=== PATIENT | male | born 1950 | race Caucasian/White ===

== ENCOUNTER 2017-10-11 15:42 | Observation (INO) | payer OTHER ==
[2017-10-11] MEDS ORDERED: DIGOXIN 0.5 MG/2 ML AMPUL ONE (16:03)
--- NOTE | 2017-10-11 16:03 | PDOC ---
Attending Attestation - Resident Resident Name: Gina Echevarria - ED Attending Attestation I have performed the following: I have examined & evaluated the patient, The case was reviewed & discussed with the resident, I agree w/resident's findings & plan, Exceptions are as noted - HPI HPI: 10/11/17 16:06 Mr Husain is a 67-year-old male with a history of atrial fibrillation on Eliquis, history of hypertension. Patient states he went to his primary care physician's office, with the intention of going to the gym today. While at his primary care physician's office, his vitals revealed a tachycardia. EMS was called. Patient noted to have supraventricular tachycardia. Given Cardizem 6mg After cardizem 12, this revealed a flutter Patient was brought to emergency department for further stabilization. He denies chest pain, short of breath. He asked she has no sensation of his heart rate being elevated. No nausea, vomiting. No prior history of ACS. Patient is closely followed by his linotypist, most recent echo was several months ago per patient normal. No recent travel. No history of thyroid disorder. - Physicial Exam PE: 10/11/17 16:10 Patient's examination is significant for: Regular rhythm Tachycardia No murmur Lungs are clear No abdominal tenderness to palpation. Patient is awake, alert, oriented - Medical Decision Making 10/11/17 16:11 Will do labs Will call linotypist Pt linotypist requests that pt be given Digoxin 0.5 HR decreased from 150s to 110s Pt given Metoprolol 5mg IV and Metoprolol 50mg po (he missed his morning meds) HR controlled Laboratory Tests 10/11/17 10/11/17 16:04 16:04 WBC 7.8 Hgb 15.6 Hct 46.8 Plt Count 229 D BUN 22 H Creatinine 1.2 Creatine Kinase 672 H Creatine Kinase Index 1.0 CK-MB (CK-2) 6.83 H Troponin I 0.04 D B-Natriuretic Peptide 976.16 H Pt initially hesitant, but ultimately convinced to stay in the hospital EKG: supraventricular tachycardia, rate of 155 bpm, [place] nml, intervals nml, no st elevations or depressions Clinical Impression: Aflutter, initial presentation 10/12/17 21:42 10/12/17 21:43
[2017-10-11] MEDS ORDERED: SODIUM CHLORIDE 1,000 ML IV STA (16:04)
[2017-10-11] MEDS ORDERED: ADENOSINE 6 MG/2 ML VIAL IVPUSH ONE (16:04)
[2017-10-11] MEDS ORDERED: DIGOXIN 0.5 MG/2 ML AMPUL IVPUSH ONE (16:05)
--- NOTE | 2017-10-11 16:11 | PDOC ---
History of Present Illness - General Stated Complaint: DIFFICULTY BREATHING Time Seen by Provider: 10/11/17 16:06 - History of Present Illness Initial Comments: 67 year old male with a PMH of AFib (on Eliquis) and HTN BIBEMS from his PMD's office after a routine ECG shows SVT. Patient states he was in his usual state of health and was going to his PMD's office for a regular visit. Denies any chest pain, shortness of breath, lightheadedness, nause/vomiting and state he was planning on going to gym after his doctor's appointment. Notes no personal or family h/o ACS. As per EMS patient was given Cardizem (6 mg) and Cardizem (12 mg) with subsequent conversion to AFib. At presentation patient tachycardic to 150's. Past History - Past Medical History Allergies/Adverse Reactions: Allergies Allergy/AdvReac Type Severity Reaction Status Date / Time No Known Allergies Allergy Verified 04/02/14 22:06 Home Medications: Ambulatory Orders Esomeprazole Mag Trihydrate [Nexium] 40 mg PO DAILY 12/07/12 Metoprolol Tartrate [Lopressor -] 25 mg PO DAILY 12/07/12 Aspirin [ASA -] 81 mg PO DAILY #0 tab.chew 12/11/12 traZODone HCL [Desyrel -] 40 mg PO HS 04/02/14 Testosterone [Androgel] 1.25 gm TD DAILY 06/15/14 Thyroid 60 mg PO DAILY 06/15/14 Guar Gum [Benefiber] 1 each PO BID #0 packet 06/16/14 Avoid Motrin/Advil/Aleve 06/25/14 Phenylephrine HCl [Nasal [place]] 30 ml NS PRN PRN 06/25/14 Apixaban [Eliquis -] 5 mg PO Q12H #0 tablet 10/13/17 Apixaban [Eliquis] 5 mg PO BID #60 tablet 10/13/17 Atorvastatin Ca [Lipitor] 80 mg PO HS #30 tab 10/13/17 Atorvastatin Ca [Lipitor] 80 mg PO HS #60 tablet 10/13/17 Metoprolol Succinate 50 mg PO BID #60 tab.er.24h 10/13/17 Metoprolol Succinate [Toprol XL -] 50 mg PO BID #120 tab.sr.24h 10/13/17 Anemia: No Asthma: No Cancer: No Cardiac Disorders: Yes (ENLARGED HEART, SEVERE AORTIC SENOSIS) CVA: No COPD: No CHF: No Dementia: No GI Disorders: Yes (COLON POLYPS) Disorders: No HTN: Yes Hypercholesterolemia: No Liver Disease: No Seizures: No Thyroid Disease: Yes (HYPO) - Surgical History Abdominal Surgery: No Appendectomy: No Cardiac Surgery: No Cholecystectomy: No Lung Surgery: No Neurologic Surgery: No Orthopedic Surgery: Yes (LT ANKLE REPAIR, ELENA. CARPAL TUNNEL SX) - Suicide/Smoking/Psychosocial Hx Smoking Status: No Smoking History: Former smoker Have you smoked in the past 12 months: No Number of Cigarettes Smoked Daily: 0 If you are a former smoker, when did you quit?: 40 YRS AGO Hx Alcohol Use: No Drug/Substance Use Hx: No Substance Use Type: None Hx Substance Use Treatment: No Review of Systems - Review of Systems Constitutional: No: Chills, Fever Respiratory: No: Cough, Shortness of Breath, Stridor, Wheezing Cardiac (ROS): Yes: Palpitations. No: Chest Pain, Lightheadedness, Syncope ABD/GI: Yes: Difficulty Swallowing. No: Constipated, Diarrhea, Nausea, Vomiting , Abdominal cramping : No: Burning, Dysuria *Physical Exam - Physical Exam Comments: 10/14/17 04:16 Alert, verbal, tachycardic S1/S2, Tachycardic Lungs CLTA Abdomen soft, no TTP, (+) Bowel Sounds Extremities: no edema, 2+ DP ED Treatment Course - LABORATORY CBC & Chemistry Diagram: 10/13/17 05:50 10/13/17 05:50 Medical Decision Making - Medical Decision Making 10/14/17 04:19 67 year old male BIBEMS for tachycardia. In Atrial flutter, tachycardic to 150' s at presentation. ECG show SVT HR 155 with normal intervals, no deviations, no TWI/CRISTINO/STD Patient given Metoprolol (5 mg IV) and 50 mg PO with HR to 110's Case d/w patient's gluer, Dr. Rainey - requests Digoxin (0.5 mg) - ok w/ discharge. If patient stays, requests Dr. Kamara for cardiology. Patient continues to be intermittently tachycardic to 120's. Complains of anxiety and agitation. Patient later notes he has a licensed weapon and he is afraid it will be taken away from him and shows license for weapon. Patient's weapon given to security. Patient continues to express anxiety that he will in the hospital. S/p Ativan (2 mg). Patient and patient's sister @ bedside counseled extensively on importance of admission, amenable to admission. Case d/w ACCOUNTS RECEIVABLE ASSISTANT, admitted to inpatient telemetry. *DC/Admit/Observation/Transfer Diagnosis at time of Disposition: Tachycardia - Discharge Dispostion Condition at time of disposition: Fair Decision to Admit order: Yes - Prescriptions - Referrals - Patient Instructions - Post Discharge Activity
[2017-10-11 16:39] LABS: BASO % 0.4 % (0-2.0); EOS % 2.6 % (0-4.5); HEMATOCRIT 46.8 % (35.4-49); HEMOGLOBIN 15.6 GM/dL (11.7-16.9); LYMPH % 24.3 % (8-40); MCH 30.2 pg (25.7-33.7); MCHC 33.3 g/dl (32.0-35.9); MEAN CELL VOLUME 90.6 fl (80-96); MEAN PLT VOLUME 8.5 fl (7.5-11.1); MONO % 12.2 % (3.8-10.2); NEUT % 60.5 % (42.8-82.8); PLATELET COUNT 229 K/MM3 (134-434); RBC 5.17 M/mm3 (4.00-5.60); RDW 14.8 % (11.9-15.9); WHITE BLOOD COUNT 7.8 K/mm3 (4.0-10.0)
[2017-10-11 17:04] LABS: ANION GAP 9 (8-16); BLOOD UREA NITROGEN 22 mg/dL (7-18); CALCIUM 8.4 mg/dL (8.5-10.1); CHLORIDE 110 mmol/L (98-107); CO2 23 mmol/L (21-32); CREATININE 1.2 mg/dL (0.7-1.3); GLUCOSE,RANDOM 99 mg/dL (74-106); POTASSIUM 4.5 mmol/L (3.5-5.1); SGOT/AST 28 U/L (15-37); SGPT/ALT 67 U/L (12-78); SODIUM 142 mmol/L (136-145)
[2017-10-11 17:08] LABS: ALK PHOS 66 U/L (45-117); BILIRUBIN,TOTAL 0.4 mg/dL (0.2-1.0); N-TERMINAL BNP 976.16 pg/ml (5-125); TOT PROT 6.2 g/dl (6.4-8.2)
[2017-10-11] MEDS ORDERED: METOPROLOL TARTRATE 5 MG/5 ML VIAL IVPUSH ONE (17:22)
[2017-10-11] MEDS ORDERED: APIXABAN 5 MG TABLET PO ONE (17:23)
[2017-10-11] MEDS ORDERED: METOPROLOL TARTRATE 5 MG/5 ML VIAL ONE (17:23)
--- NOTE | 2017-10-11 20:40 | HP ---
CHIEF COMPLAINT: sent by PMD for rapid heart rate, no chest pain PCP: Dr. Eckert HISTORY OF PRESENT ILLNESS: Patient is an 67 year old male with a significant past medical history of atrial fibrillation (on Eliquis), hypertension and severe aortic stenosis. Patient went to his primary care physician's office, and was found to have a rapid heart rate during routine vitals. Physician office called EMS and patient was brought here. In the ED, patient was noted to have supraventricular tachycardia and was given Cardizem, metoprolol IV and adenosine. After med administration patient was noted to have atrial flutter. Patient denies any chest pain, shortness of breath , nausea or vomiting. No arm pain or jaw pain. Patient is under the care of his beater worker helper and had a recent echo. Patient states compliance with his home medications. ER was notable for (1) cardizem, metoprolol, adenosine (2) (3) PAST MEDICAL HISTORY: atrial fibrillation (on Eliquis), hypertension and severe aortic stenosis PAST SURGICAL HISTORY: Social History: Smoking: former smoker Alcohol: denies Drugs: denies Family History: Allergies No Known Allergies Allergy (Verified 04/02/14 22:06) HOME MEDICATIONS: Home Medications Medication Instructions Recorded Esomeprazole Mag Trihydrate 40 mg PO DAILY 12/07/12 [Nexium] Metoprolol Tartrate [Lopressor -] 25 mg PO DAILY 12/07/12 Aspirin [ASA -] 81 mg PO DAILY #0 tab.chew 12/11/12 traZODone HCL [Desyrel -] 40 mg PO HS 04/02/14 Testosterone [Androgel] 1.25 gm TD DAILY 06/15/14 Thyroid 60 mg PO DAILY 06/15/14 Guar Gum [Benefiber] 1 each PO BID #0 packet 06/16/14 Avoid Motrin/Advil/Aleve 06/25/14 Phenylephrine HCl [Nasal [place]] 30 ml NS PRN PRN 06/25/14 PHYSICAL EXAMINATION Vital Signs - 24 hr 10/11/17 10/11/17 10/11/17 15:43 16:30 16:55 Temperature 98.0 F Pulse Rate 155 H 155 H Pulse Rate [ 115 H Apical] Respiratory 16 16 Rate Blood Pressure 134/94 Blood Pressure 145/77 [Left Arm] O2 Sat by Pulse 100 100 Oximetry (%) 10/11/17 10/11/17 17:22 17:31 Temperature Pulse Rate Pulse Rate [ 77 Apical] Respiratory 16 Rate Blood Pressure 144/75 Blood Pressure 120/78 [Left Arm] O2 Sat by Pulse 100 Oximetry (%) GENERAL: Awake, alert, and fully oriented, in no acute distress. HEAD: Normal with no signs of trauma. EYES: Pupils equal, round and reactive to light, extraocular movements intact, sclera anicteric, conjunctiva clear. No lid lag. EARS, NOSE, THROAT: Ears normal, nares patent, oropharynx clear without exudates. Moist mucous membranes. NECK: Normal range of motion, supple without lymphadenopathy, JVD, or masses. LUNGS: Breath sounds equal, clear to auscultation bilaterally. No wheezes, and no crackles. No accessory muscle use. HEART: NSR 115 on phototypesetting equipment monitor ABDOMEN: Soft, nontender, not distended, normoactive bowel sounds, no guarding, no rebound, no masses. No hepatomegaly or splenomegaly. MUSCULOSKELETAL: Normal range of motion at all joints. No bony deformities or tenderness. No CVA tenderness. UPPER EXTREMITIES: No peripheral edema. LOWER EXTREMITIES: No peripheral edema. NEUROLOGICAL: Normal speech. Normal gait. PSYCHIATRIC: Appropriate mood and affect. SKIN: Warm, dry, normal turgor, no rashes or lesions noted, normal capillary refill. Laboratory Results - last 24 hr 10/11/17 10/11/17 16:04 16:04 WBC 7.8 RBC 5.17 Hgb 15.6 Hct 46.8 MCV 90.6 MCH 30.2 MCHC 33.3 RDW 14.8 Plt Count 229 D MPV 8.5 Absolute Neuts (auto) 4.7 Neutrophils % 60.5 Lymphocytes % 24.3 D Monocytes % 12.2 H Eosinophils % 2.6 D Basophils % 0.4 Nucleated RBC % 0 Sodium 142 Potassium 4.5 Chloride 110 H Carbon Dioxide 23 Anion Gap 9 BUN 22 H Creatinine 1.2 Creat Clearance w eGFR > 60 Random Glucose 99 Calcium 8.4 L Total Bilirubin 0.4 AST 28 D ALT 67 D Alkaline Phosphatase 66 Creatine Kinase 672 H Creatine Kinase Index 1.0 CK-MB (CK-2) 6.83 H Troponin I 0.04 D B-Natriuretic Peptide 976.16 H Total Protein 6.2 L Albumin 3.0 L ASSESSMENT/PLAN: Patient is an 67 year old male with a significant past medical history of atrial fibrillation (on Eliquis), hypertension and severe aortic stenosis. Patient went to his primary care physician's office, and was found to have a rapid heart rate during routine vitals. Physician office called EMS and patient was brought here. Card: Rule out ACS: trend troponins, monitor on tele. Repeat EKG. Follow labs and vitals. Lipid panel. TSH ordered. Cardiology consulted. Hypertension: BP controlled. Atrial fib: On Eliquis fen tolerating po monitor electrolytes low salt diet prophy: on eliquis full code Hospitalist Screening - Colonoscopy Questionnaire Colonoscopy Questionnaire: Colonoscopy Questionnaire
[2017-10-11] MEDS ORDERED: METOPROLOL TARTRATE 5 MG/5 ML VIAL IVPUSH PRN (20:41)
[2017-10-11] MEDS ORDERED: LORazepam 2 MG/ML SDV VIAL ONE (21:19)
[2017-10-12 01:15] VITALS: BMI 31.7
[2017-10-12 06:23] LABS: BASO % 0.5 % (0-2.0); EOS % 3.9 % (0-4.5); HEMATOCRIT 48.2 % (35.4-49); LYMPH % 26.7 % (8-40); MCH 30.1 pg (25.7-33.7); MCHC 33.1 g/dl (32.0-35.9); MEAN CELL VOLUME 90.9 fl (80-96); MEAN PLT VOLUME 8.3 fl (7.5-11.1); MONO % 10.8 % (3.8-10.2); NEUT % 58.1 % (42.8-82.8); PLATELET COUNT 199 K/MM3 (134-434); RDW 14.9 % (11.9-15.9); WHITE BLOOD COUNT 8.4 K/mm3 (4.0-10.0)
[2017-10-12 07:03] LABS: ALBUMIN 2.9 g/dl (3.4-5.0); ANION GAP 9 (8-16); BILIRUBIN,TOTAL 0.6 mg/dL (0.2-1.0); BLOOD UREA NITROGEN 17 mg/dL (7-18); CALCIUM 8.4 mg/dL (8.5-10.1); CHLORIDE 109 mmol/L (98-107); CO2 26 mmol/L (21-32); CREATININE 1.1 mg/dL (0.7-1.3); GLUCOSE,RANDOM 83 mg/dL (74-106); MAGNESIUM 1.8 mg/dL (1.8-2.4); POTASSIUM 4.8 mmol/L (3.5-5.1); SGOT/AST 25 U/L (15-37); SGPT/ALT 65 U/L (12-78); SODIUM 144 mmol/L (136-145); TOT PROT 6.2 g/dl (6.4-8.2)
[2017-10-12 07:12] LABS: ALK PHOS 65 U/L (45-117)
[2017-10-12] MEDS: metoPROLOL SUCCINATE 25 MG TAB.SR.24H (FP) PO SCH ×3 (08:11→21:18)
[2017-10-12] MEDS: APIXABAN 5 MG TABLET PO SCH ×2 (08:11→20:30)
--- NOTE | 2017-10-12 08:54 | EKG ---
Test Reason : Blood Pressure : / mmHG Vent. Rate : 155 BPM Atrial Rate : 076 BPM P-R Int : 000 ms QRS Dur : 096 ms QT Int : 304 ms P-R-T Axes : 000 008 231 degrees QTc Int : 488 ms SUPRAVENTRICULAR TACHYCARDIA , Possible Atrial Flutter NONSPECIFIC ST ABNORMALITY ABNORMAL ECG Confirmed by JENIFER ALVARADO MD ([id number]) on 10/12/2017 8:54:35 AM Referred By: Confirmed By:JENIFER ALVARADO MD
[2017-10-12 09:03] LABS: CHOLESTEROL 211 mg/dL (50-200); HDL CHOLESTEROL 24 mg/dL (40-60); TRIGLYCERIDES 108 mg/dL (35-160)
--- NOTE | 2017-10-12 10:21 | CON.CARD ---
Consult Consult Specialty:: Cardiology Referred by:: Hospitalist Medicine Reason for Consultation:: Rapid aflutter - History of Present Illness Chief Complaint: Tachycardia History of Present Illness: cc: Sent by PMD for rapid heart rate and fatigue, no chest pain PCP: Dr. Eckert Health Care Coach: Wilson Rainey MD CD HISTORY OF PRESENT ILLNESS: Patient is an 67 year old male with history of moderate aortic stenosis, HTN, paroxysmal atrial fibrillation, DVT/PE (on Eliquis), hypertension last saw Dr. Rainey 07/13/2017. Patient went to his primary care physician's office for fatigue, was found to have a rapid heart rate during routine vitals. EKG revealed SVT 155 and was given Cardizem, metoprolol IV and adenosine. After med administration patient was noted to have atrial flutter. Patient denies any chest pain, shortness of breath, near or true syncope, palpitations. Patient states compliance with his home medications including Eliquis, just ate breakfast. - History Source History Provided By: Patient Limitations to Obtaining History: No Limitations - Alcohol/Substance Use Hx Alcohol Use: No - Smoking History Smoking history: Former smoker Have you smoked in the past 12 months: No Aproximately how many cigarettes per day: 0 If you are a former smoker, when did you quit?: 40 YRS AGO Home Medications - Allergies Allergies/Adverse Reactions: Allergies Allergy/AdvReac Type Severity Reaction Status Date / Time No Known Allergies Allergy Verified 04/02/14 22:06 - Home Medications Home Medications: Ambulatory Orders Esomeprazole Mag Trihydrate [Nexium] 40 mg PO DAILY 12/07/12 Metoprolol Tartrate [Lopressor -] 25 mg PO DAILY 12/07/12 Aspirin [ASA -] 81 mg PO DAILY #0 tab.chew 12/11/12 traZODone HCL [Desyrel -] 40 mg PO HS 04/02/14 Testosterone [Androgel] 1.25 gm TD DAILY 06/15/14 Thyroid 60 mg PO DAILY 06/15/14 Guar Gum [Benefiber] 1 each PO BID #0 packet 06/16/14 Avoid Motrin/Advil/Aleve 06/25/14 Phenylephrine HCl [Nasal [place]] 30 ml NS PRN PRN 06/25/14 Review of Systems - Review of Systems Constitutional: reports: Malaise Vital Signs: Vital Signs Temperature 97.5 F L 10/12/17 02:00 Pulse Rate 75 10/12/17 06:00 Respiratory Rate 20 10/12/17 06:00 Blood Pressure 139/87 10/12/17 06:00 O2 Sat by Pulse Oximetry (%) 96 10/11/17 22:00 Constitutional: Yes: No Distress, Calm Neck: Yes: Supple Respiratory: Yes: Regular, CTA Bilaterally Gastrointestinal: Yes: Normal Bowel Sounds, Soft, Abdomen, Obese Cardiovascular: Yes: Tachycardia, Pulse Irregular JVD: No Carotid Bruit: No Heart Sounds: Yes: S1, S2 Murmur: Yes: Systolic Murmur, Grade 2 Edema: No - Other Data Labs, Other Data: CBC, BMP 10/12/17 05:30 10/12/17 05:30 Troponin, BNP 10/11/17 10/11/17 10/12/17 16:04 22:24 05:30 Troponin I 0.04 D 0.05 0.04 B-Natriuretic Peptide 976.16 H Troponin, BNP 10/11/17 10/11/17 10/12/17 16:04 22:24 05:30 Troponin I 0.04 D 0.05 0.04 B-Natriuretic Peptide 976.16 H SVT 155->Aflutter @ 97 Echo: Report Reviewed Ejection Fraction %: LVEF > or = 40 % Imaging - Results Chest X-ray: Report Reviewed (NAD) Problem List - Problems (1) Moderate aortic stenosis Code(s): I35.0 - NONRHEUMATIC AORTIC (VALVE) STENOSIS (2) Hyperlipidemia Code(s): E78.5 - HYPERLIPIDEMIA, UNSPECIFIED Qualifiers: Hyperlipidemia type: pure hypercholesterolemia Qualified Code(s): E78.00 - Pure hypercholesterolemia, unspecified; E78.0 - Pure hypercholesterolemia (3) Paroxysmal atrial flutter Code(s): I48.92 - UNSPECIFIED ATRIAL FLUTTER (4) Chronic anticoagulation Code(s): Z79.01 - DESK OPERATOR (CURRENT) USE OF ANTICOAGULANTS Assessment/Plan 03/22/2017 Echo: Normal LV and RV size and fxn, abnl LV compliance, normal biatrial sizes, mod NEELAM 1.0 cm^2, MG 18.7 mmHg, mild AI, tr MR, TR 1. Paroxysmal atrial flutter/fibrillation with improved rate-control 2. Moderate aortic stenosis 3. Hyperlipidemia not at goal P:1. Ruled out MA, f/u echocardiogram 2. Increase metoprolol 50 bid, Eliquis 5 bid, continue Lipitor with f/u lipid panel 3. Already at breakfast so can't cardiovert, will confirm rate-control with increased Toprol dose, discussed plan with Dr. Rainey of [facility] [place], he will see patient in office for f/u 4. Thank you for consultative opportunity
[2017-10-12] MEDS: metoPROLOL SUCCINATE 25 MG TAB.SR.24H (FP) PO ONE ×2 (11:38→11:50)
--- NOTE | 2017-10-12 13:13 | ECHO ---
Name: CUCCHIELLA, BINA Exam:Adult Echocardiogram Study Date: 10/12/2017 09:13 AM Reason For Study: svt Height: 69 in Weight: 200 lb BSA: 2.1 m2 MMode/2D Measurements & Calculations IVSd: 0.95 cm Ao root diam: 3.7 cm LVIDd: 5.2 cm LA dimension: 5.0 cm LVIDs: 3.6 cm ACS: 0.67 cm LVPWd: 1.5 cm IVSs: 1.3 cm LVPWs: 1.6 cm EDV(Teich): 131.4 ml ESV(Teich): 55.9 ml LVOT diam: 2.1 cm Doppler Measurements & Calculations MV E max rome: 72.3 cm/sec Ao V2 max: 278.0 cm/sec MV A max rome: 63.4 cm/sec Ao max P.4 mmHg MV E/A: 1.1 Ao V2 mean: 187.5 cm/sec Ao mean P.4 mmHg Ao V2 VTI: 43.6 cm NEELAM(I,D): 1.6 cm2 NEELAM(V,D): 1.4 cm2 LV V1 max P.6 mmHg SV(LVOT): 69.4 ml LV V1 mean P.6 mmHg LV V1 max: 115.7 cm/sec LV V1 mean: 85.9 cm/sec LV V1 VTI: 20.9 cm TR max rome: 259.0 cm/sec Med Peak E' [place]: 6.4 cm/sec TR max P.9 mmHg Med E/e': 11.4 Lat Peak E' [place]: 13.4 cm/sec Lat E/e': 5.4 Left Ventricle Left ventricular systolic function is grossly normal. Right Ventricle The right ventricle is normal in size and function. Atria The left atrium is moderately dilated. Mitral Valve There is mild mitral valve thickening. There is no mitral valve stenosis. There is trace to mild mitr al regurgitation. Tricuspid Valve The tricuspid valve is normal in structure and function. There is mild tricuspid regurgitation. Right ventricular systolic pressure is elevated at 30-40mmHg. Aortic Valve Moderate valvular aortic stenosis. Pulmonic Valve The pulmonic valve is not well seen, but is grossly normal. There is no pulmonic valvular stenosis. T here is no pulmonic valvular regurgitation. Great Vessels Borderline aortic root dilatation. Pericardium/Pleura There is no pericardial effusion. Interpretation Summary Left ventricular systolic function is grossly normal. The right ventricle is normal in size and function. The left atrium is moderately dilated. There is mild mitral valve thickening. There is trace to mild mitral regurgitation. There is mild tricuspid regurgitation. Right ventricular systolic pressure is elevated at 30-40mmHg. Moderate valvular aortic stenosis. Borderline aortic root dilatation. There is no pericardial effusion. MD Rahat Ramirez 10/12/2017 01:12 PM
--- NOTE | 2017-10-12 20:48 | PN ---
Physical Exam: SUBJECTIVE: Patient seen and examined. No chest pain, not short of breath. OBJECTIVE: Vital Signs Period Temp Pulse Resp BP Sys/King Pulse Ox Last 24 Hr 97.5 F-98.7 F 73-76 16-20 100-139/58-87 96-98 GENERAL: Awake, alert, and fully oriented, in no acute distress. HEAD: Normal with no signs of trauma. EYES: Pupils equal, round and reactive to light, extraocular movements intact, sclera anicteric, conjunctiva clear. No lid lag. EARS, NOSE, THROAT: Ears normal, nares patent, oropharynx clear without exudates. Moist mucous membranes. NECK: Normal range of motion, supple without lymphadenopathy, JVD, or masses. LUNGS: Breath sounds equal, clear to auscultation bilaterally. No wheezes, and no crackles. No accessory muscle use. HEART: aflutter on environmental monitoring technician. ABDOMEN: Soft, nontender, not distended, normoactive bowel sounds, no guarding, no rebound, no masses. No hepatomegaly or splenomegaly. MUSCULOSKELETAL: Normal range of motion at all joints. No bony deformities or tenderness. No CVA tenderness. UPPER EXTREMITIES: No peripheral edema. LOWER EXTREMITIES: No peripheral edema. NEUROLOGICAL: Normal speech. Normal gait. PSYCHIATRIC: Appropriate mood and affect. SKIN: Warm, dry, normal turgor, no rashes or lesions noted, normal capillary refill. Laboratory Results - last 24 hr 10/11/17 10/11/17 10/12/17 20:00 22:24 05:30 WBC RBC Hgb Hct MCV MCH MCHC RDW Plt Count MPV Absolute Neuts (auto) Neutrophils % Lymphocytes % Monocytes % Eosinophils % Basophils % Nucleated RBC % Sodium 144 Potassium 4.8 Chloride 109 H Carbon Dioxide 26 Anion Gap 9 BUN 17 Creatinine 1.1 Creat Clearance w eGFR > 60 Random Glucose 83 Hemoglobin A1c % Lactic Acid 1.2 Calcium 8.4 L Magnesium 1.8 Total Bilirubin 0.6 AST 25 ALT 65 Alkaline Phosphatase 65 Troponin I 0.05 0.04 Total Protein 6.2 L Albumin 2.9 L Triglycerides 108 D Cholesterol 211 H D Total LDL Cholesterol 175 H D HDL Cholesterol 24 L D TSH 1.95 10/12/17 10/12/17 10/12/17 05:30 05:30 05:30 WBC 8.4 RBC 5.30 Hgb 16.0 Hct 48.2 MCV 90.9 MCH 30.1 MCHC 33.1 RDW 14.9 Plt Count 199 MPV 8.3 Absolute Neuts (auto) 4.9 Neutrophils % 58.1 Lymphocytes % 26.7 Monocytes % 10.8 H Eosinophils % 3.9 Basophils % 0.5 Nucleated RBC % 0 Sodium Potassium Chloride Carbon Dioxide Anion Gap BUN Creatinine Creat Clearance w eGFR Random Glucose Hemoglobin A1c % 5.7 Lactic Acid Calcium Magnesium Total Bilirubin AST ALT Alkaline Phosphatase Troponin I Total Protein Albumin Triglycerides Cancelled Cholesterol Cancelled Total LDL Cholesterol Cancelled HDL Cholesterol Cancelled TSH Active Medications Generic Name Dose Route Start Last Admin Trade Name Freq PRN Reason Stop Dose Admin Apixaban 5 mg 10/12/17 08:00 10/12/17 20:30 Eliquis - PO 5 mg Q12H CRISTI Administration Atorvastatin Calcium 80 mg 10/12/17 22:00 Lipitor - PO HS CRISTI Metoprolol Succinate 50 mg 10/12/17 22:00 Toprol Xl - PO BID CRISTI Metoprolol Tartrate 5 mg 10/11/17 20:41 Lopressor Injection - IVPUSH Q4H PRN TACHYCARDIA ASSESSMENT/PLAN: Patient is an 67 year old male with a significant past medical history of atrial fibrillation (on Eliquis), hypertension and severe aortic stenosis. Patient went to his primary care physician's office, and was found to have a rapid heart rate during routine vitals. Physician office called EMS and patient was brought to the ER for further evaluation. Card: Rule out ACS: troponins negative. No chest pain, not short of breath. Echo reviewed. Ruled out for OK by cardiology. Hypertension: BP controlled. Paroxysmal atrial flutter/fibrillation: Rate controlled with Toprol 50mg BID. On Eliquis. Continue cardiac monitoring. HLD: Lipid panel reviewed. Started on Lipitor. fen tolerating po monitor electrolytes low salt diet prophy: on eliquis full code
[2017-10-12] MEDS ORDERED: ATORVASTATIN CA 80 MG TABLET (FP) PO SCH (22:00)
--- NOTE | 2017-10-13 01:04 | CONSULT ---
Consult Consult Specialty:: endocrine Referred by:: dayron Reason for Consultation:: endocrine - History of Present Illness Chief Complaint: palpitation and fatigue History of Present Illness: 67 year old male with a significant past medical history of atrial fibrillation (on Eliquis), hypertension and severe aortic stenosis. Patient was seen for fatigue and weight gain,and was found to have a rapid heart rate during routine vitals. Ekg showed svt @160bpm EMS was called and patient was brought to ed,he had been feeling weak,and light headed.anxious and occasional shortness of breath for last several days. - History Source History Provided By: Patient - Alcohol/Substance Use Hx Alcohol Use: No - Smoking History Smoking history: Former smoker Have you smoked in the past 12 months: No Aproximately how many cigarettes per day: 0 If you are a former smoker, when did you quit?: 40 YRS AGO Home Medications - Allergies Allergies/Adverse Reactions: Allergies Allergy/AdvReac Type Severity Reaction Status Date / Time No Known Allergies Allergy Verified 04/02/14 22:06 - Home Medications Home Medications: Ambulatory Orders Esomeprazole Mag Trihydrate [Nexium] 40 mg PO DAILY 12/07/12 Metoprolol Tartrate [Lopressor -] 25 mg PO DAILY 12/07/12 Aspirin [ASA -] 81 mg PO DAILY #0 tab.chew 12/11/12 traZODone HCL [Desyrel -] 40 mg PO HS 04/02/14 Testosterone [Androgel] 1.25 gm TD DAILY 06/15/14 Thyroid 60 mg PO DAILY 06/15/14 Guar Gum [Benefiber] 1 each PO BID #0 packet 06/16/14 Avoid Motrin/Advil/Aleve 06/25/14 Phenylephrine HCl [Nasal [place]] 30 ml NS PRN PRN 06/25/14 Review of Systems - Review of Systems Constitutional: reports: Loss of Appetite, Weakness Eyes: reports: No Symptoms HENT: reports: No Symptoms Neck: reports: No Symptoms Cardiovascular: reports: Shortness of Breath Respiratory: reports: Exercise Intolerance, SOB on Exertion Gastrointestinal: reports: Bloating Genitourinary: reports: No Symptoms Breasts: reports: No Symptoms Reported Musculoskeletal: reports: Muscle Pain, Muscle Cramps, Muscle Weakness Neurological: reports: Weakness Endocrine: reports: Unexplained Weight Gain Physical Exam Vital Signs: Vital Signs Temperature 98.2 F 10/12/17 19:30 Pulse Rate 76 10/12/17 19:30 Respiratory Rate 20 10/12/17 22:00 Blood Pressure 100/58 10/12/17 19:30 O2 Sat by Pulse Oximetry (%) 98 10/12/17 22:00 Constitutional: Yes: Anxious Eyes: Yes: EOM Intact HENT: Yes: Normocephalic Neck: Yes: Trachea Midline Cardiovascular: Yes: Tachycardia, Pulse Irregular Respiratory: Yes: CTA Bilaterally Gastrointestinal: Yes: Normal Bowel Sounds ...Rectal Exam: Yes: Deferred Renal/: Yes: WNL Breast(s): Yes: WNL Musculoskeletal: Yes: WNL Extremities: Yes: WNL Peripheral Pulses WNL: Yes Neurological: Yes: Alert, Oriented Labs: CBC, BMP 10/12/17 05:30 10/12/17 05:30 Problem List - Problems (1) Chronic anticoagulation Code(s): Z79.01 - [facility] (CURRENT) USE OF ANTICOAGULANTS (2) Hyperlipidemia Code(s): E78.5 - HYPERLIPIDEMIA, UNSPECIFIED Qualifiers: Hyperlipidemia type: pure hypercholesterolemia Qualified Code(s): E78.00 - Pure hypercholesterolemia, unspecified; E78.0 - Pure hypercholesterolemia (3) Moderate aortic stenosis Code(s): I35.0 - NONRHEUMATIC AORTIC (VALVE) STENOSIS (4) Paroxysmal atrial flutter Code(s): I48.92 - UNSPECIFIED ATRIAL FLUTTER (5) Head injury Code(s): S09.90XA - UNSPECIFIED INJURY OF HEAD, INITIAL ENCOUNTER Assessment/Plan Current Active Problems Chronic anticoagulation (Acute) Hyperlipidemia (Acute) Moderate aortic stenosis (Acute) Paroxysmal atrial flutter (Acute) Abnormal Lab Results 10/12/17 10/12/17 05:30 05:30 Monocytes % 10.8 H Chloride 109 H Calcium 8.4 L Total Protein 6.2 L Albumin 2.9 L Cholesterol 211 H D Total LDL Cholesterol 175 H D HDL Cholesterol 24 L D Laboratory Results - last 24 hr 10/12/17 10/12/17 10/12/17 05:30 05:30 05:30 WBC 8.4 RBC 5.30 Hgb 16.0 Hct 48.2 MCV 90.9 MCH 30.1 MCHC 33.1 RDW 14.9 Plt Count 199 MPV 8.3 Absolute Neuts (auto) 4.9 Neutrophils % 58.1 Lymphocytes % 26.7 Monocytes % 10.8 H Eosinophils % 3.9 Basophils % 0.5 Nucleated RBC % 0 Sodium 144 Potassium 4.8 Chloride 109 H Carbon Dioxide 26 Anion Gap 9 BUN 17 Creatinine 1.1 Creat Clearance w eGFR > 60 Random Glucose 83 Hemoglobin A1c % Calcium 8.4 L Magnesium 1.8 Total Bilirubin 0.6 AST 25 ALT 65 Alkaline Phosphatase 65 Troponin I 0.04 Total Protein 6.2 L Albumin 2.9 L Triglycerides 108 D Cancelled Cholesterol 211 H D Cancelled Total LDL Cholesterol 175 H D Cancelled HDL Cholesterol 24 L D Cancelled TSH 1.95 10/12/17 05:30 WBC RBC Hgb Hct MCV MCH MCHC RDW Plt Count MPV Absolute Neuts (auto) Neutrophils % Lymphocytes % Monocytes % Eosinophils % Basophils % Nucleated RBC % Sodium Potassium Chloride Carbon Dioxide Anion Gap BUN Creatinine Creat Clearance w eGFR Random Glucose Hemoglobin A1c % 5.7 Calcium Magnesium Total Bilirubin AST ALT Alkaline Phosphatase Troponin I Total Protein Albumin Triglycerides Cholesterol Total LDL Cholesterol HDL Cholesterol TSH plan diet and nutrition consult ck cpk isoenzymes given prior high elevated ck may benefit from pcsk inhibitor antibody
[2017-10-13 06:13] VITALS: BP 125/80; PULSE 76; TEMP 97.6
[2017-10-13 07:55] LABS: BASO % 0.6 % (0-2.0); EOS % 4.3 % (0-4.5); HEMATOCRIT 47.9 % (35.4-49); LYMPH % 20.9 % (8-40); MCH 30.3 pg (25.7-33.7); MCHC 33.4 g/dl (32.0-35.9); MEAN CELL VOLUME 90.6 fl (80-96); MEAN PLT VOLUME 8.7 fl (7.5-11.1); MONO % 10.8 % (3.8-10.2); NEUT % 63.4 % (42.8-82.8); PLATELET COUNT 192 K/MM3 (134-434); RBC 5.28 M/mm3 (4.00-5.60); RDW 14.7 % (11.9-15.9)
[2017-10-13 07:58] LABS: ANION GAP 8 (8-16); BILIRUBIN,TOTAL 0.5 mg/dL (0.2-1.0); BLOOD UREA NITROGEN 19 mg/dL (7-18); CALCIUM 8.8 mg/dL (8.5-10.1); CHLORIDE 106 mmol/L (98-107); CO2 28 mmol/L (21-32); GLUCOSE,RANDOM 92 mg/dL (74-106); MAGNESIUM 1.8 mg/dL (1.8-2.4); POTASSIUM 4.6 mmol/L (3.5-5.1); SGOT/AST 28 U/L (15-37); SGPT/ALT 67 U/L (12-78); SODIUM 142 mmol/L (136-145); TOT PROT 5.9 g/dl (6.4-8.2)
[2017-10-13 07:59] LABS: ALK PHOS 65 U/L (45-117)
[2017-10-13] MEDS: APIXABAN 5 MG TABLET PO SCH (08:11)
[2017-10-13] MEDS: metoPROLOL SUCCINATE 25 MG TAB.SR.24H (FP) PO SCH (09:24)
--- NOTE | 2017-10-13 09:55 | DS ---
Physical Exam: SUBJECTIVE: Patient seen and examined OBJECTIVE: Vital Signs Period Temp Pulse Resp BP Sys/King Pulse Ox Last 24 Hr 97.6 F-98.7 F 73-76 18-20 100-131/58-84 97-98 PHYSICAL EXAM GENERAL: The patient is awake, alert, and fully oriented, in no acute distress. HEAD: Normal with no signs of trauma. EYES: PERRL, extraocular movements intact, sclera anicteric, conjunctiva clear. ENT: Ears normal, nares patent, oropharynx clear without exudates, moist mucous membranes. NECK: Trachea midline, full range of motion, supple. LUNGS: Breath sounds equal, clear to auscultation bilaterally, no wheezes, no crackles, no accessory muscle use. HEART: Regular rate and rhythm, S1, S2 without murmur, rub or gallop. ABDOMEN: Soft, nontender, nondistended, normoactive bowel sounds, no guarding, no rebound, no hepatosplenomegaly, no masses. EXTREMITIES: 2+ pulses, warm, well-perfused, no edema. NEUROLOGICAL: Cranial nerves II through XII grossly intact. Normal speech, gait not observed. PSYCH: Normal mood, normal affect. SKIN: Warm, dry, normal turgor, no rashes or lesions noted. LABS Laboratory Results - last 24 hr 10/13/17 10/13/17 05:50 05:50 WBC 8.0 RBC 5.28 Hgb 16.0 Hct 47.9 MCV 90.6 MCH 30.3 MCHC 33.4 RDW 14.7 Plt Count 192 MPV 8.7 Absolute Neuts (auto) 5.0 Neutrophils % 63.4 Lymphocytes % 20.9 D Monocytes % 10.8 H Eosinophils % 4.3 Basophils % 0.6 Nucleated RBC % 0 Sodium 142 Potassium 4.6 Chloride 106 Carbon Dioxide 28 Anion Gap 8 BUN 19 H Creatinine 1.0 Creat Clearance w eGFR > 60 Random Glucose 92 Calcium 8.8 Magnesium 1.8 Total Bilirubin 0.5 AST 28 ALT 67 Alkaline Phosphatase 65 Total Protein 5.9 L Albumin 3.0 L HOSPITAL COURSE: Date of Admission:10/11/17 Date of Discharge: 10/13/17 Discharge Summary Reason For Visit: ELEVATED TROPONIN LEVELS Current Active Problems Chronic anticoagulation (Acute) Hyperlipidemia (Acute) Moderate aortic stenosis (Acute) Paroxysmal atrial flutter (Acute) Condition: Stable - Instructions Referrals: Mark Eckert MD [Primary Care Provider] - Disposition: HOME - Home Medications Comprehensive Discharge Medication List: Ambulatory Orders Esomeprazole Mag Trihydrate [Nexium] 40 mg PO DAILY 12/07/12 Metoprolol Tartrate [Lopressor -] 25 mg PO DAILY 12/07/12 Aspirin [ASA -] 81 mg PO DAILY #0 tab.chew 12/11/12 traZODone HCL [Desyrel -] 40 mg PO HS 04/02/14 Testosterone [Androgel] 1.25 gm TD DAILY 06/15/14 Thyroid 60 mg PO DAILY 06/15/14 Guar Gum [Benefiber] 1 each PO BID #0 packet 06/16/14 Avoid Motrin/Advil/Aleve 06/25/14 Phenylephrine HCl [Nasal [place]] 30 ml NS PRN PRN 06/25/14 Apixaban [Eliquis -] 5 mg PO Q12H #0 tablet 10/13/17 Atorvastatin Ca [Lipitor] 80 mg PO HS #60 tablet 10/13/17 Metoprolol Succinate [Toprol XL -] 50 mg PO BID #120 tab.sr.24h 10/13/17
--- NOTE | 2017-10-15 20:29 | EKG ---
Test Reason : Blood Pressure : / mmHG Vent. Rate : 097 BPM Atrial Rate : 300 BPM P-R Int : 000 ms QRS Dur : 094 ms QT Int : 382 ms P-R-T Axes : 268 026 123 degrees QTc Int : 485 ms POOR DATA QUALITY, INTERPRETATION MAY BE ADVERSELY AFFECTED ATRIAL FLUTTER WITH VARIABLE A-V BLOCK PROLONGED QT ABNORMAL ECG WHEN COMPARED WITH ECG OF 11-OCT-2017 15:55, ATRIAL FLUTTER HAS REPLACED SINUS RHYTHM VENT. RATE HAS DECREASED BY [address] NO LONGER DEPRESSED IN LATERAL LEADS Confirmed by MD JESSICA, CARIN ([id number]) on 10/15/2017 8:29:19 PM Referred By: BINA PABLO,[facility] Confirmed By:CARIN LOPEZ MD
== END 2017-10-13 10:53 | disposition home or self-care (01) ==
LOC: JER 15:42 → JERBED 17:55 → J4W 10-12 00:57
PROVIDERS: ADMIT Internal Medicine; ATTEND Nurse Practitioner Family
PROC: 3E033NZ Introduction of Analgesics, Hypnotics, Sedatives into Peripheral Vein, Percutaneous Approach (ICD-10-PCS; principal; 2017-10-11)
PROC: 3E033GC Introduction of Other Therapeutic Substance into Peripheral Vein, Percutaneous Approach (ICD-10-PCS; 2017-10-11)
PROC: 3E0337Z Introduction of Electrolytic and Water Balance Substance into Peripheral Vein, Percutaneous Approach (ICD-10-PCS; 2017-10-11)
DX: I10 Essential (primary) hypertension (principal); R77.8 Other specified abnormalities of plasma proteins; I48.92 Unspecified atrial flutter; I35.0 Nonrheumatic aortic (valve) stenosis; E78.5 Hyperlipidemia, unspecified; E03.9 Hypothyroidism, unspecified; R01.1 Cardiac murmur, unspecified; Z79.01 Long term (current) use of anticoagulants; Z79.82 Long term (current) use of aspirin; Z87.891 Personal history of nicotine dependence
CPT/HCPCS: 36415; 71045-TC-FY; 80053; 80061; 82550; 82553; 83036; 83605; 83721; 83735; 83880; 84443; 84484; 85025; 93005; 93010; 93306-TC; 96361; 96374; 96375; 99285-25; G0378; J7030

== ENCOUNTER 2017-12-25 21:26 | Inpatient (IN) | payer OTHER ==
[2017-12-25 21:31] VITALS: BMI 31.7
--- NOTE | 2017-12-25 21:31 | PDOC ---
Rapid Medical Evaluation Time Seen by Provider: 12/25/17 21:28 Medical Evaluation: Allergies Allergy/AdvReac Type Severity Reaction Status Date / Time No Known Allergies Allergy Verified 04/02/14 22:06 12/25/17 21:28 Pt here for rapid heart rate. States that he took his pulse at home and it was 150. Took 300mg of Metoprolol with no relief of his symptoms. Denies chest pain or palpitations Exam: Irregularrly irregular rate and rythm. Lungs CTAB Orders: EKG, Labs, IV Pt to proceed to ED for further evaluation Discharge Disposition - Diagnosis Irregular heart beat - Referrals Referrals: Mark Eckert MD [Primary Care Provider] - - Patient Instructions - Post Discharge Activity
[2017-12-25 22:07] LABS: BASO % 1.1 % (0-2.0); EOS % 2.6 % (0-4.5); HEMATOCRIT 53.5 % (35.4-49); HEMOGLOBIN 17.6 GM/dL (11.7-16.9); LYMPH % 21.6 % (8-40); MCH 29.1 pg (25.7-33.7); MCHC 32.9 g/dl (32.0-35.9); MEAN CELL VOLUME 88.5 fl (80-96); MEAN PLT VOLUME 8.2 fl (7.5-11.1); MONO % 12.7 % (3.8-10.2); PLATELET COUNT 232 K/MM3 (134-434); RBC 6.04 M/mm3 (4.00-5.60); RDW 15.5 % (11.9-15.9); WHITE BLOOD COUNT 8.7 K/mm3 (4.0-10.0)
--- NOTE | 2017-12-25 22:13 | PDOC ---
History of Present Illness - General Chief Complaint: Irregular Heart Beat Stated Complaint: HIGH HEART RATE Time Seen by Provider: 12/25/17 21:28 History Source: Patient - History of Present Illness Initial Comments: 12/25/17 23:11 Patient is a 67 year old male with a PMH of Afib (on Eliquis) and HTN presents to our ED c/o 1 day h/o palpitations. Patient states he was at home when he started to feel like his heart was beating very fast. Patient states he took Metoprolol 300 mg after an at home reading showed his HR to be in the 150's. He denies any associated chest pain, shortness of breath, lightheadedness. Notes life stresses including his health that he believes causes his heart to beat fast. Patient denies any fevers/chills, abdominal pain, constipation/diarrhea or dysuria/hematuria. NKDA Surgical: denies Social: denies toxic habits PMD: Dr. Eckert As per EMR, patient was last evaluated in our ED in 09/2017 for SVT which resolved s/p Cardizem. Past History - Past Medical History Allergies/Adverse Reactions: Allergies Allergy/AdvReac Type Severity Reaction Status Date / Time No Known Allergies Allergy Verified 12/25/17 21:31 Home Medications: Ambulatory Orders Esomeprazole Mag Trihydrate [Nexium] 40 mg PO DAILY 12/07/12 traZODone HCL [Desyrel -] 50 mg PO HS 04/02/14 Testosterone [Androgel] 1.25 gm TD DAILY 06/15/14 Apixaban [Eliquis] 5 mg PO BID #60 tablet 10/13/17 Atorvastatin Ca [Lipitor] 80 mg PO HS #60 tablet 10/13/17 Metoprolol Succinate [Toprol XL -] 50 mg PO BID #120 tab.sr.24h 10/13/17 Amlodipine Besylate 0 mg PO DAILY 12/26/17 Fluticasone Prop 0.05% Nasal [Flonase -] 1 spray NS HS 12/26/17 Anemia: No Asthma: No Cancer: No Cardiac Disorders: Yes (A-FIB, SEVERE AORTIC SENOSIS) CVA: No COPD: No CHF: No Dementia: No GI Disorders: Yes (COLON POLYPS) Disorders: No HTN: Yes Hypercholesterolemia: No Liver Disease: No Seizures: No Thyroid Disease: Yes (HYPO) - Surgical History Abdominal Surgery: No Appendectomy: No Cardiac Surgery: No Cholecystectomy: No Lung Surgery: No Neurologic Surgery: No Orthopedic Surgery: Yes (LT ANKLE REPAIR, ELENA. CARPAL TUNNEL SX) - Suicide/Smoking/Psychosocial Hx Smoking Status: No Smoking History: Never smoked Have you smoked in the past 12 months: No Number of Cigarettes Smoked Daily: 0 If you are a former smoker, when did you quit?: 40 YRS AGO Hx Alcohol Use: No Drug/Substance Use Hx: No Substance Use Type: None Hx Substance Use Treatment: No Review of Systems - Review of Systems Constitutional: No: Chills, Fever HEENTM: No: Blurred Vision, Double Vision Respiratory: No: Cough, Shortness of Breath, Stridor, Wheezing Cardiac (ROS): Yes: Palpitations. No: Chest Pain, Lightheadedness ABD/GI: No: Constipated, Diarrhea, Nausea, Vomiting : No: Burning, Dysuria *Physical Exam - Vital Signs Last Vital Signs Temp Pulse Resp BP Pulse Ox 97.6 F 139 H 18 118/83 97 12/25/17 21:28 12/25/17 21:28 12/25/17 21:28 12/25/17 21:28 12/25/17 21:28 - Physical Exam General Appearance: Yes: Nourished, Appropriately Dressed HEENT: positive: EOMI, RADHA Neck: positive: Trachea midline, Supple Respiratory/Chest: positive: Lungs Clear, Normal Breath Sounds. negative: Crackles, Rales, Rhonchi, Stridor, Wheezing Cardiovascular: positive: S1, S2, Tachycardia. negative: Edema, JVD Vascular Pulses: Dorsalis-Pedis (R): 2+, Doralis-Pedis (L): 2+ Gastrointestinal/Abdominal: positive: Normal Bowel Sounds, Soft Musculoskeletal: negative: CVA Tenderness (R), CVA Tenderness (L) Extremity: positive: Normal Capillary Refill, Normal Inspection Integumentary: positive: Normal Color, Dry, Warm Neurologic: positive: Fully Oriented, Alert ED Treatment Course - LABORATORY CBC & Chemistry Diagram: 12/25/17 21:52 12/25/17 21:52 - ADDITIONAL ORDERS Additional order review: 12/25/17 21:52 RBC 6.04 H MCV 88.5 MCHC 32.9 RDW 15.5 MPV 8.2 Neutrophils % 62.0 Lymphocytes % 21.6 Monocytes % 12.7 H Eosinophils % 2.6 Basophils % 1.1 Medical Decision Making - Medical Decision Making 12/25/17 23:14 67 year old male c/o palpitations. H/o elevated troponins and SVT. At presentation intermittently tachycardic. Will give IV fluids. CBC, CMP, EKG, Troponin. Reassess. 12/25/17 23:16 EKG in triage shows Aflutter with 2:1 conduction block; repeat ECG @ bedside in the ED shows AFlutter HR 79. Troponin elevated @ 0.22 patient has a h/o demand ischemia, however Troponin @ 0.22, previous Troponin 0.04 in 09/2017. Given patient's Troponin leak and AFlutter will admit for cardiac evaluation. Patient extensively counseled on plan of care. Patient admitted to hospitalist medicine service. *DC/Admit/Observation/Transfer Diagnosis at time of Disposition: Irregular heart beat - Referrals - Patient Instructions - Post Discharge Activity
[2017-12-25 22:30] LABS: INR 1.1 (0.83-1.09); PROTHROMBIN TIME (PATIENT) 12.4 SEC (9.7-13.0)
[2017-12-25] MEDS ORDERED: SODIUM CHLORIDE 0.9% 500 ML INFUS.BAG IV ONE (23:03)
[2017-12-25 23:11] LABS: ALBUMIN 3.3 g/dl (3.4-5.0); ALK PHOS 72 U/L (45-117); ANION GAP 10 MMOL/L (8-16); BILIRUBIN,TOTAL 0.6 mg/dL (0.2-1); BLOOD UREA NITROGEN 18 mg/dL (7-18); CALCIUM 9.3 mg/dL (8.5-10.1); CHLORIDE 107 mmol/L (98-107); CO2 23 mmol/L (21-32); CREATININE 1.3 mg/dL (0.55-1.3); GLUCOSE,RANDOM 88 mg/dL (74-106); SGPT/ALT 75 U/L (13-61); SODIUM 140 mmol/L (136-145); TOT PROT 6.8 g/dl (6.4-8.2)
[2017-12-25 23:14] LABS: MAGNESIUM 1.8 mg/dL (1.8-2.4); SGOT/AST 40 U/L (15-37)
--- NOTE | 2017-12-26 00:16 | PDOC ---
Attending Attestation - Resident Resident Name: Gina Echevarria - ED Attending Attestation I have performed the following: I have examined & evaluated the patient, The case was reviewed & discussed with the resident, I agree w/resident's findings & plan, Exceptions are as noted - HPI HPI: 12/26/17 00:16 The patient is a year old male, with a significant past medical history of HTN and Afib (on Eliquis), who presents to the emergency department with palpitations. As per patient, his symptoms started while at home at rest. Pt states he checked his HR and found it to be 150. He took 300mg of Metoprolol, without relief, prompting his visit to the ER today. He denies any recent fevers, chills, headache or dizziness. He denies any recent nausea, vomit, diarrhea or constipation. He denies any recent chest pain or shortness of breath. He denies any recent dysuria, frequency, urgency or hematuria. Allergies: NKA Past surgical history: None reported. Social History: Nonsmoker. Denies EtOH use and recreational drug use. Primary Care Physician: Dr. Eckert - Physicial Exam PE: 12/26/17 00:18 GENERAL: Awake, alert, and fully oriented, in no acute distress. HEAD: No signs of trauma EYES: PERRLA, EOMI, sclera anicteric, conjunctiva clear ENT: Auricles normal inspection, hearing grossly normal, nares patent, oropharynx clear without exudates. Moist mucosa NECK: Nontender, no stepoffs, Normal ROM, supple, no lymphadenopathy, JVD, or masses LUNGS: Breath sounds equal, clear to auscultation bilaterally. No wheezes, and no crackles HEART: irregularly irregular, normal S1 and S2, no murmurs, rubs or gallops ABDOMEN: Soft, nontender, normoactive bowel sounds. No guarding, no rebound. No masses EXTREMITIES: Normal range of motion, no edema. No clubbing or cyanosis. No cords, erythema, or tenderness NEUROLOGICAL: Cranial nerves II through XII intact. 5/5 strength and sensation in all extremities, Normal speech, normal gait, normal cerebellar function SKIN: Warm, Dry, normal turgor, no rashes or lesions noted. - Medical Decision Making 12/26/17 00:18 67 M with palpitations. Initial EKG read as sinus tach at 140. However, I believe this more likely aflutter with 2:1 conduction. Pt now rate controlled without intervention, HR 70s. EKG shows aflutter with variable conduction. - Labs - IVF - Admit tele
--- NOTE | 2017-12-26 01:33 | HP ---
CHIEF COMPLAINT: sent from pcp for elevated HR PCP: Babar HISTORY OF PRESENT ILLNESS: This is a 67 year old male with a past medical history significant for SVT and afib who presented to the emergency department with palpitations. As per patient , his symptoms started while at home at rest. Pt states he checked his HR and found it to be 150. He took 300mg of Metoprolol, without relief, prompting his visit to the ER today. ER course was notable for: (1) HR 139 upon arrival (2) trop 0.22 (3) Recent Travel: pt denies PAST MEDICAL HISTORY: HTN, severe , afib, colon polyps, hypothyroid PAST SURGICAL HISTORY: L ankle ORIF B/L THR quadriceps reattachment B/L carpal tunnel Social History: Smoking: quit 20-30 years ago, prior 1ppd Alcohol: pt denies Drugs: pt denies Family History: mother alive with HTN and father age 80, prostate CA Allergies No Known Allergies Allergy (Verified 12/25/17 21:31) HOME MEDICATIONS: 3 Medication Instructions Recorded Esomeprazole Mag Trihydrate 40 mg PO DAILY 12/07/12 [Nexium] traZODone HCL [Desyrel -] 50 mg PO HS 04/02/14 Testosterone [Androgel] 1.25 gm TD DAILY 06/15/14 Apixaban [Eliquis] 5 mg PO BID #60 tablet 10/13/17 Atorvastatin Ca [Lipitor] 80 mg PO HS #60 tablet 10/13/17 Metoprolol Succinate [Toprol XL -] 50 mg PO BID #120 tab.sr.24h 10/13/17 Amlodipine Besylate 0 mg PO DAILY 12/26/17 Fluticasone Prop 0.05% Nasal 1 spray NS HS 12/26/17 [Flonase -] REVIEW OF SYSTEMS CONSTITUTIONAL: Absent: fever, chills, diaphoresis, generalized weakness, malaise, loss of appetite, weight change HEENT: Absent: rhinorrhea, nasal congestion, throat pain, throat swelling, difficulty swallowing, mouth swelling, ear pain, eye pain, visual changes CARDIOVASCULAR: Absent: chest pain, syncope, palpitations, irregular heart rate, lightheadedness , peripheral edema RESPIRATORY: Absent: cough, shortness of breath, dyspnea with exertion, orthopnea, wheezing, stridor, hemoptysis GASTROINTESTINAL: Absent: abdominal pain, abdominal distension, nausea, vomiting, diarrhea, constipation, melena, hematochezia GENITOURINARY: Absent: dysuria, frequency, urgency, hesitancy, hematuria, flank pain, genital pain MUSCULOSKELETAL: Absent: myalgia, arthralgia, joint swelling, back pain, neck pain SKIN: Absent: rash, itching, pallor HEMATOLOGIC/IMMUNOLOGIC: Absent: easy bleeding, easy bruising, lymphadenopathy, frequent infections ENDOCRINE: Absent: unexplained weight gain, unexplained weight loss, heat intolerance, cold intolerance NEUROLOGIC: Absent: headache, focal weakness or paresthesias, dizziness, unsteady gait, seizure, mental status changes, bladder or bowel incontinence PSYCHIATRIC: Absent: anxiety, depression, suicidal or homicidal ideation, hallucinations. PHYSICAL EXAMINATION Vital Signs - 24 hr 3 12/25/17 21:28 Temperature 97.6 F Pulse Rate 139 H Respiratory 18 Rate Blood Pressure 118/83 O2 Sat by Pulse 97 Oximetry (%) GENERAL: Awake, alert, and fully oriented, in no acute distress. HEAD: Normal with no signs of trauma. EYES: Pupils equal, round and reactive to light, extraocular movements intact, sclera anicteric, conjunctiva clear. No lid lag. EARS, NOSE, THROAT: Ears normal, nares patent, oropharynx clear without exudates. Moist mucous membranes. NECK: Normal range of motion, supple without lymphadenopathy, JVD, or masses. LUNGS: Breath sounds equal, clear to auscultation bilaterally. No wheezes, and no crackles. No accessory muscle use. HEART: Irregular rate and rhythm, normal S1 and S2 without murmur, rub or gallop. ABDOMEN: Soft, nontender, not distended, normoactive bowel sounds, no guarding, no rebound, no masses. No hepatomegaly or splenomegaly. MUSCULOSKELETAL: Normal range of motion at all joints. No bony deformities or tenderness. No CVA tenderness. UPPER EXTREMITIES: 2+ pulses, warm, well-perfused. No cyanosis. No clubbing. No peripheral edema. LOWER EXTREMITIES: 2+ pulses, warm, well-perfused. No calf tenderness. No peripheral edema. NEUROLOGICAL: Cranial nerves II-XII intact. Normal speech. Normal gait. PSYCHIATRIC: Cooperative. Good eye contact. Appropriate mood and affect. SKIN: Warm, dry, normal turgor, no rashes or lesions noted, normal capillary refill. Laboratory Results - last 24 hr 3 12/25/17 12/25/17 12/25/17 21:52 21:52 21:52 WBC 8.7 RBC 6.04 H Hgb 17.6 H Hct 53.5 H MCV 88.5 MCH 29.1 MCHC 32.9 RDW 15.5 Plt Count 232 D MPV 8.2 Absolute Neuts (auto) 5.4 Neutrophils % 62.0 Lymphocytes % 21.6 Monocytes % 12.7 H Eosinophils % 2.6 Basophils % 1.1 Nucleated RBC % 0 PT with INR 12.40 INR 1.10 H Sodium 140 Potassium 5.0 Chloride 107 Carbon Dioxide 23 Anion Gap 10 BUN 18 Creatinine 1.3 Creat Clearance w eGFR 55.06 Random Glucose 88 Calcium 9.3 Magnesium 1.8 Total Bilirubin 0.6 AST 40 H ALT 75 H Alkaline Phosphatase 72 Creatine Kinase 1056 H Creatine Kinase Index 0.8 CK-MB (CK-2) 9.5 H Troponin I 0.22 H Total Protein 6.8 Albumin 3.3 L ECG 12/25/17 23:04 atrial flutter with variable AV block vent rate 79, QTC 410 12/25/17 21:32 Sinus tachycardia vent rate 140, QTC 399 Radiology Reports Chest xray portable Impression No significant interval change or acute lung disease is present. Reported By: Rupali Bills MD 12/25/17 4538 ASSESSMENT/PLAN: 67yM with PMH HTN, severe , afib, colon polyps, hypothyroid presented to the ED with palipitations and elevated HR. Afib with variable AV block - took home metoprolol dose plus additional doses - hold further metoprolol in ED - observe on tele - cardiology consult - cont home eliquis HTN - cont home toprol and amlodipine hypothyroid - pt states that his PCP informed him to stop taking his armour thyroid - will check TSH DVT PPX - cont home eliquis FEN - tolerating po - BMP in am - low sodium diet as tolerated Dispo: Pt currently requires further observation. Visit type - Emergency Visit Emergency Visit: Yes ED Registration Date: 12/26/17 Care time: The patient presented to the Emergency Department on the above date and was hospitalized for further evaluation of their emergent condition. - New Patient This patient is new to me today: Yes Date on this admission: 12/26/17 - Critical Care Critical Care patient: No Hospitalist Screening - Colonoscopy Questionnaire Colonoscopy Questionnaire: Colonoscopy Questionnaire - Patient: 50 - 75 years old and never had a screening colonoscopy: No History of colon or rectal polyps, or CA: Yes History of IBD, Crohn's disease or UC: No History of abdominal radiation therapy as a child: No - Relative: 1 with colon or rectal CA, or polyps at age 60 or younger: No Colon or rectal CA diagnosed at age 45 or younger: No Multiple relatives with colon or rectal CA: No - Outcome: Screening Result: Positive Screen
[2017-12-26] MEDS: PANTOPRAZOLE 40 MG TABLET (FP) PO SCH (09:34)
[2017-12-26] MEDS: APIXABAN 5 MG TABLET PO SCH ×2 (09:34→21:00)
[2017-12-26 09:41] LABS: BASO % 0.9 % (0-2.0); HEMATOCRIT 51.6 % (35.4-49); HEMOGLOBIN 16.6 GM/dL (11.7-16.9); LYMPH % 25.4 % (8-40); MCH 28.4 pg (25.7-33.7); MCHC 32.2 g/dl (32.0-35.9); MEAN CELL VOLUME 88.1 fl (80-96); MEAN PLT VOLUME 7.9 fl (7.5-11.1); MONO % 13.2 % (3.8-10.2); NEUT % 57.5 % (42.8-82.8); PLATELET COUNT 177 K/MM3 (134-434); RBC 5.85 M/mm3 (4.00-5.60); RDW 15.2 % (11.9-15.9); WHITE BLOOD COUNT 7.2 K/mm3 (4.0-10.0)
--- NOTE | 2017-12-26 09:50 | PN ---
Progress Note, Physician - Current Medication List Current Medications: Active Medications Amlodipine Besylate (Norvasc -) 5 mg PO DAILY [facility] Last Admin: 12/26/17 09:34 Dose: 5 mg Apixaban (Eliquis -) 5 mg PO BID [facility] Last Admin: 12/26/17 09:34 Dose: 5 mg Atorvastatin Calcium (Lipitor -) 80 mg PO HS [facility] Fluticasone Propionate (Flonase -) 1 spray NS HS [facility] Metoprolol Succinate (Toprol Xl -) 50 mg PO BID [facility] Last Admin: 12/26/17 09:34 Dose: 50 mg Pantoprazole Sodium (Protonix -) 40 mg PO DAILY [facility] Last Admin: 12/26/17 09:34 Dose: 40 mg Trazodone HCl (Desyrel -) 50 mg PO HS [facility] - Objective Vital Signs: Vital Signs Temperature 98.1 F 12/26/17 09:28 Pulse Rate 93 H 12/26/17 09:28 Respiratory Rate 20 12/26/17 09:28 Blood Pressure 108/79 12/26/17 09:28 O2 Sat by Pulse Oximetry (%) 96 12/26/17 03:30 Labs: CBC, BMP 12/26/17 09:25 INR, PTT INR 1.10 (0.83-1.09) H 12/25/17 21:52 Problem List - Problems (1) Paroxysmal atrial flutter Assessment/Plan: - took home metoprolol dose plus additional doses--Total 300 yesterday - observe on tele on metoprolol 50 bid-- - Check TSH - cardiology consult - cont home eliquis Code(s): I48.92 - UNSPECIFIED ATRIAL FLUTTER (2) Moderate aortic stenosis Assessment/Plan: -Review last echo Code(s): I35.0 - NONRHEUMATIC AORTIC (VALVE) STENOSIS (3) Hypothyroid Assessment/Plan: - pt states that his PCP informed him to stop taking his armour thyroid - will check TSH Code(s): E03.9 - HYPOTHYROIDISM, UNSPECIFIED
[2017-12-26] MEDS ORDERED: amLODIPine BESYLATE 5 MG TABLET (FP) PO SCH (10:00)
[2017-12-26] MEDS ORDERED: TESTOSTERONE 1.25 GM TD SCH (10:00)
--- NOTE | 2017-12-26 10:53 | CON.CARD ---
Consult Consult Specialty:: Cardiology Referred by:: Candi Dimas MD Reason for Consultation:: Rapid aflutter - History of Present Illness Chief Complaint: Palpitations History of Present Illness: cc: Sent by PMD for rapid heart rate and fatigue, no chest pain PCP: Dr. Eckert Computer [employer]ided Design Operator: Wilson Rainey MD CD HISTORY OF PRESENT ILLNESS: Patient is an 67 year old male with history of moderate aortic stenosis, HTN, paroxysmal atrial flutter, DVT/PE (on Eliquis), hypertension last saw Dr. Rainey 10/15/2017. Patient went to his primary care physician's office for fatigue, was found to have a rapid heart rate during routine vitals. EKG revealed SVT 155 and was given metoprolol IV, patient was noted to have recurrent rapid atrial flutter, last episode September 2017. Patient denies any chest pain, shortness of breath, near or true syncope, palpitations. Patient states compliance with his home medications including Eliquis, just ate breakfast. - History Source History Provided By: Patient Limitations to Obtaining History: No Limitations - Past Medical History Cardio/Vascular: Yes: AFIB, Aortic Stenosis - Alcohol/Substance Use Hx Alcohol Use: No - Smoking History Smoking history: Former smoker Have you smoked in the past 12 months: No Aproximately how many cigarettes per day: 0 If you are a former smoker, when did you quit?: 40 YRS AGO Home Medications - Allergies Allergies/Adverse Reactions: Allergies Allergy/AdvReac Type Severity Reaction Status Date / Time No Known Allergies Allergy Verified 12/25/17 21:31 - Home Medications Home Medications: Ambulatory Orders Esomeprazole Mag Trihydrate [Nexium] 40 mg PO DAILY 12/07/12 traZODone HCL [Desyrel -] 50 mg PO HS 04/02/14 Testosterone [Androgel] 1.25 gm TD DAILY 06/15/14 Apixaban [Eliquis] 5 mg PO BID #60 tablet 10/13/17 Atorvastatin Ca [Lipitor] 80 mg PO HS #60 tablet 10/13/17 Metoprolol Succinate [Toprol XL -] 50 mg PO BID #120 tab.sr.24h 10/13/17 Amlodipine Besylate 0 mg PO DAILY 12/26/17 Fluticasone Prop 0.05% Nasal [Flonase -] 1 spray NS HS 12/26/17 Family Disease History - Family Disease History Family History: Denies Review of Systems - Review of Systems Constitutional: reports: Weakness Cardiovascular: reports: No Symptoms Respiratory: reports: No Symptoms Gastrointestinal: reports: No Symptoms Genitourinary: reports: No Symptoms Musculoskeletal: reports: No Symptoms Integumentary: reports: No Symptoms Neurological: reports: No Symptoms Endocrine: reports: No Symptoms Vital Signs: Vital Signs Temperature 98.1 F 12/26/17 09:28 Pulse Rate 93 H 12/26/17 09:28 Respiratory Rate 20 12/26/17 09:28 Blood Pressure 108/79 12/26/17 09:28 O2 Sat by Pulse Oximetry (%) 96 12/26/17 03:30 Constitutional: Yes: No Distress, Calm Neck: Yes: Supple Respiratory: Yes: Regular, CTA Bilaterally Gastrointestinal: Yes: Normal Bowel Sounds, Soft, Abdomen, Obese Cardiovascular: Yes: Tachycardia, Pulse Irregular JVD: No Carotid Bruit: No Heart Sounds: Yes: S1, S2 Murmur: Yes: Systolic Murmur, Grade 2 Edema: No - Other Data Labs, Other Data: CBC, BMP 12/26/17 09:25 INR, PTT INR 1.10 (0.83-1.09) H 12/25/17 21:52 Troponin, BNP 12/25/17 12/26/17 21:52 02:00 Troponin I 0.22 H 0.22 H Troponin, BNP 12/25/17 12/26/17 21:52 02:00 Troponin I 0.22 H 0.22 H Rapid aflutter 150 Tele: Rate-controlled aflutter Problem List - Problems (1) Chronic anticoagulation Code(s): Z79.01 - CORRECTION (CURRENT) USE OF ANTICOAGULANTS (2) Hyperlipidemia Code(s): E78.5 - HYPERLIPIDEMIA, UNSPECIFIED Qualifiers: Hyperlipidemia type: pure hypercholesterolemia Qualified Code(s): E78.00 - Pure hypercholesterolemia, unspecified; E78.0 - Pure hypercholesterolemia (3) Moderate aortic stenosis Code(s): I35.0 - NONRHEUMATIC AORTIC (VALVE) STENOSIS (4) Paroxysmal atrial flutter Code(s): I48.92 - UNSPECIFIED ATRIAL FLUTTER Assessment/Plan 03/22/2017 Echo: Normal LV and RV size and fxn, abnl LV compliance, normal biatrial sizes, mod NEELAM 1.0 cm^2, MG 18.7 mmHg, mild AI, tr MR, TR 10/12/2017 Echo: Normal LV and RV size and fxn, mod LAE, mod , mild TR RVSP 30 -40 mmHg 1. Recurrent paroxysmal atrial flutter with RVR 2. Moderate aortic stenosis 3. Hyperlipidemia not at goal P:1. Ruled out MT 2. Change Metoprolol 50 XL bid to sotalol 80 bid with monitor QT interval, change norvasc to cardizem for improved rate-control, Eliquis 5 bid, continue Lipitor 80 qhs with f/u lipid panel 3. Already at breakfast so can't cardiovert, plan for DCCV in AM 4. Patient to f/u with Dr. Rainey and [place]cedez [place] [facility] [place] 5. Thank you for consultative opportunity
[2017-12-26 11:03] LABS: ANION GAP 9 MMOL/L (8-16); BLOOD UREA NITROGEN 18 mg/dL (7-18); CHLORIDE 111 mmol/L (98-107); CO2 23 mmol/L (21-32); CREATININE 1.2 mg/dL (0.55-1.3); GLUCOSE,RANDOM 90 mg/dL (74-106); PHOSPHOROUS 3.3 mg/dL (2.5-4.9); SODIUM 142 mmol/L (136-145)
[2017-12-26] MEDS: SOTALOL HCL 80 MG TABLET (FP) PO SCH ×2 (11:37→21:01)
[2017-12-26 12:41] LABS: URINE APPEARANCE CLEAR; URINE BILIRUBIN NEGATIVE (<2.0 mg/dL); URINE COLOR DKYELLOW; URINE GLUCOSE (UA) NEGATIVE (NEGATIVE); URINE KETONE NEGATIVE (NEGATIVE); URINE LEUK ESTERASE NEGATIVE (NEGATIVE); URINE NITRITE NEGATIVE (NEGATIVE); URINE UROBILINOGEN NEGATIVE mg/dL (0.2-1.0)
[2017-12-26 12:42] LABS: URINE PROTEIN 1+ (NEGATIVE)
--- NOTE | 2017-12-26 13:22 | EKG ---
Test Reason : Blood Pressure : / mmHG Vent. Rate : 140 BPM Atrial Rate : 140 BPM P-R Int : 154 ms QRS Dur : 108 ms QT Int : 262 ms P-R-T Axes : 094 024 252 degrees QTc Int : 399 ms ATRIAL FLUTTER WITH 2 TO 1 BLOCK ABNORMAL ECG Confirmed by ARACELY FLOYD MD ([id number]) on 12/26/2017 1:22:07 PM Referred By: Confirmed By:ARACELY FLOYD MD
[2017-12-26] MEDS: dilTIAZem HCL 30 MG TABLET (FP) PO SCH ×2 (13:23→21:01)
[2017-12-26] MEDS: traZODone HCL 50 MG TABLET (FP) PO SCH (21:00)
[2017-12-26] MEDS: FLUTICASONE PROP 0.05% 16 GM NASAL SPRAY NS SCH (21:01)
[2017-12-26] MEDS: ATORVASTATIN CA 80 MG TABLET (FP) PO SCH (21:01)
--- NOTE | 2017-12-27 00:20 | CONSULT ---
Consult Consult Specialty:: endocrine Referred by:: pmd Reason for Consultation:: thyroiditis - History of Present Illness Chief Complaint: weak and palpitation History of Present Illness: 67 year old male with a PMH of Afib (on Eliquis) and HTN presents to our ED c/o 1 day h/o palpitations.seen in office found to have recurrent [id number],call made to outdoor education teacher advised him to take extra dose beta corin,metoprolol and subsequently hr improved and was 90 Patient states he was at home when he started to feel like his heart was beating very fast. Patient states he took Metoprolol 300 mg after an at home reading showed his HR to be in the 150's. He denies any associated chest pain,cough fever or chills - History Source History Provided By: Patient - Past Medical History Cardio/Vascular: Yes: AFIB, Aortic Stenosis - Alcohol/Substance Use Hx Alcohol Use: No - Smoking History Smoking history: Former smoker Have you smoked in the past 12 months: No Aproximately how many cigarettes per day: 0 If you are a former smoker, when did you quit?: 40 YRS AGO Home Medications - Allergies Allergies/Adverse Reactions: Allergies Allergy/AdvReac Type Severity Reaction Status Date / Time No Known Allergies Allergy Verified 12/25/17 21:31 - Home Medications Home Medications: Ambulatory Orders Esomeprazole Mag Trihydrate [Nexium] 40 mg PO DAILY 12/07/12 traZODone HCL [Desyrel -] 50 mg PO HS 04/02/14 Testosterone [Androgel] 1.25 gm TD DAILY 06/15/14 Apixaban [Eliquis] 5 mg PO BID #60 tablet 10/13/17 Atorvastatin Ca [Lipitor] 80 mg PO HS #60 tablet 10/13/17 Metoprolol Succinate [Toprol XL -] 50 mg PO BID #120 tab.sr.24h 10/13/17 Amlodipine Besylate 0 mg PO DAILY 12/26/17 Fluticasone Prop 0.05% Nasal [Flonase -] 1 spray NS HS 12/26/17 Review of Systems - Review of Systems Constitutional: reports: Weakness Eyes: reports: No Symptoms HENT: reports: No Symptoms Neck: reports: No Symptoms Cardiovascular: reports: No Symptoms Respiratory: reports: Exercise Intolerance, SOB on Exertion Gastrointestinal: reports: Bloating Genitourinary: reports: No Symptoms Breasts: reports: No Symptoms Reported Musculoskeletal: reports: No Symptoms, Muscle Cramps Integumentary: reports: No Symptoms Neurological: reports: Weakness Endocrine: reports: Increased Hunger Physical Exam Vital Signs: Vital Signs Temperature 97.8 F 12/26/17 17:00 Pulse Rate 82 12/26/17 17:00 Respiratory Rate 20 12/26/17 17:00 Blood Pressure 116/64 12/26/17 17:00 O2 Sat by Pulse Oximetry (%) 96 12/26/17 09:00 Constitutional: Yes: Anxious Eyes: Yes: EOM Intact HENT: Yes: Normocephalic Neck: Yes: Trachea Midline Cardiovascular: Yes: Tachycardia, Murmur, S2 Respiratory: Yes: CTA Bilaterally Gastrointestinal: Yes: Normal Bowel Sounds ...Rectal Exam: Yes: Deferred Renal/: Yes: WNL Musculoskeletal: Yes: WNL Extremities: Yes: Delayed Capillary Refill Labs: CBC, BMP 12/26/17 09:25 12/26/17 09:25 Problem List - Problems (1) Hypothyroid Code(s): E03.9 - HYPOTHYROIDISM, UNSPECIFIED (2) Irregular heart beat Code(s): I49.9 - CARDIAC ARRHYTHMIA, UNSPECIFIED (3) Chronic anticoagulation Code(s): Z79.01 - CATHODE WASHER (CURRENT) USE OF ANTICOAGULANTS (4) Head injury Code(s): S09.90XA - UNSPECIFIED INJURY OF HEAD, INITIAL ENCOUNTER (5) Hyperlipidemia Code(s): E78.5 - HYPERLIPIDEMIA, UNSPECIFIED Qualifiers: Hyperlipidemia type: pure hypercholesterolemia Qualified Code(s): E78.00 - Pure hypercholesterolemia, unspecified; E78.0 - Pure hypercholesterolemia (6) Moderate aortic stenosis Code(s): I35.0 - NONRHEUMATIC AORTIC (VALVE) STENOSIS (7) Paroxysmal atrial flutter Code(s): I48.92 - UNSPECIFIED ATRIAL FLUTTER Assessment/Plan Current Active Problems Hypothyroid (Acute) Irregular heart beat (Acute) ashd hyperlipidemia svt/ro mi Abnormal Lab Results 12/25/17 12/26/17 12/26/17 11:45 02:00 09:25 RBC 5.85 H Hct 51.6 H Monocytes % 13.2 H Chloride Creatine Kinase 717 H CK-MB (CK-2) 7.3 H Troponin I 0.22 H Urine Protein 1+ H 12/26/17 09:25 RBC Hct Monocytes % Chloride 111 H Creatine Kinase 653 H CK-MB (CK-2) 7.3 H Troponin I 0.17 H Urine Protein Laboratory Results - last 24 hr 12/25/17 12/26/17 12/26/17 11:45 02:00 09:25 WBC 7.2 RBC 5.85 H Hgb 16.6 Hct 51.6 H MCV 88.1 MCH 28.4 MCHC 32.2 RDW 15.2 Plt Count 177 D MPV 7.9 Absolute Neuts (auto) 4.2 Neutrophils % 57.5 Lymphocytes % 25.4 Monocytes % 13.2 H Eosinophils % 3.0 Basophils % 0.9 Nucleated RBC % 0 Sodium Potassium Chloride Carbon Dioxide Anion Gap BUN Creatinine Creat Clearance w eGFR Random Glucose Calcium Phosphorus Magnesium Creatine Kinase 717 H Creatine Kinase Index 1.0 CK-MB (CK-2) 7.3 H Troponin I 0.22 H TSH Urine Color Dkyellow Urine Appearance Clear Urine pH 7.0 Ur Specific [place] 1.018 Urine Protein 1+ H Urine Glucose (UA) Negative Urine Ketones Negative Urine Blood Negative Urine Nitrite Negative Urine Bilirubin Negative Urine Urobilinogen Negative Ur Leukocyte Esterase Negative Urine WBC (Auto) 1 Urine RBC (Auto) 2 12/26/17 09:25 WBC RBC Hgb Hct MCV MCH MCHC RDW Plt Count MPV Absolute Neuts (auto) Neutrophils % Lymphocytes % Monocytes % Eosinophils % Basophils % Nucleated RBC % Sodium 142 Potassium 5.0 Chloride 111 H Carbon Dioxide 23 Anion Gap 9 BUN 18 Creatinine 1.2 Creat Clearance w eGFR > 60 Random Glucose 90 Calcium 9.0 Phosphorus 3.3 Magnesium 2.0 Creatine Kinase 653 H Creatine Kinase Index 1.1 CK-MB (CK-2) 7.3 H Troponin I 0.17 H TSH 0.91 D Urine Color Urine Appearance Urine pH Ur Specific [place] Urine Protein Urine Glucose (UA) Urine Ketones Urine Blood Urine Nitrite Urine Bilirubin Urine Urobilinogen Ur Leukocyte Esterase Urine WBC (Auto) Urine RBC (Auto) plan: repeat tfts as outpatient euthyroid clinically
[2017-12-27] MEDS: dilTIAZem HCL 30 MG TABLET (FP) PO SCH (05:55)
[2017-12-27 07:13] LABS: CHOLESTEROL 153 mg/dL (50-200); HDL CHOLESTEROL 20 mg/dL (40-60); TRIGLYCERIDES 90 mg/dL (0-150)
[2017-12-27] MEDS: SOTALOL HCL 80 MG TABLET (FP) PO SCH ×2 (09:28→21:09)
[2017-12-27] MEDS: PANTOPRAZOLE 40 MG TABLET (FP) PO SCH (09:28)
[2017-12-27] MEDS: APIXABAN 5 MG TABLET PO SCH ×2 (09:29→21:09)
--- NOTE | 2017-12-27 09:35 | EKG ---
Test Reason : Blood Pressure : / mmHG Vent. Rate : 052 BPM Atrial Rate : 052 BPM P-R Int : 176 ms QRS Dur : 102 ms QT Int : 462 ms P-R-T Axes : 045 035 045 degrees QTc Int : 429 ms SINUS BRADYCARDIA NONSPECIFIC T WAVE ABNORMALITY ABNORMAL ECG WHEN COMPARED WITH ECG OF 25-DEC-2017 23:04, SINUS RHYTHM HAS REPLACED ATRIAL FLUTTER VENT. RATE HAS DECREASED BY 27 BPM T WAVE INVERSION NO LONGER EVIDENT IN INFERIOR LEADS NONSPECIFIC T WAVE ABNORMALITY HAS REPLACED INVERTED T WAVES IN LATERAL LEADS Confirmed by RAJESH ARTEAGA, MARLINE ([id number]) on 12/27/2017 9:34:39 AM Referred By: Confirmed By:MARLINE MENA MD
[2017-12-27] MEDS ORDERED: PT OWN MED DRAWER 7, Y5N ONE (11:09)
--- NOTE | 2017-12-27 11:22 | DS ---
Physical Examination Vital Signs: Vital Signs Temperature 98.3 F 12/27/17 05:00 Pulse Rate 52 L 12/27/17 08:53 Respiratory Rate 20 12/27/17 08:53 Blood Pressure 130/76 12/27/17 08:53 O2 Sat by Pulse Oximetry (%) 97 12/27/17 08:52 Constitutional: Yes: Calm Neck: Yes: Trachea Midline Cardiovascular: Yes: Regular Rate and Rhythm, S1, S2 Respiratory: Yes: CTA Bilaterally Gastrointestinal: Yes: Normal Bowel Sounds, Soft Edema: No Neurological: Yes: Alert, Oriented Labs: CBC, BMP 12/26/17 09:25 12/26/17 09:25 Discharge Summary Reason For Visit: TACHYCARDIA Current Active Problems Hypothyroid (Acute) Irregular heart beat (Acute) Hospital Course: HIEF COMPLAINT: sent from pcp for elevated HR PCP: Babar HISTORY OF PRESENT ILLNESS: This is a 67 year old male with a past medical history significant for SVT and afib who presented to the emergency department with palpitations. As per patient , his symptoms started while at home at rest. Pt states he checked his HR and found it to be 150. He took 300mg of Metoprolol, without relief, prompting his visit to the ER today. ER course was notable for: (1) HR 139 upon arrival (2) trop 0.22 (3) Recent Travel: pt denies paroxysmal afib HLD lipitor 80mg on sotalol and cardizem no plan for cardioversion repeat TFT as outpatinet - Instructions Referrals: Mark Eckert MD [Primary Care Provider] - Disposition: HOME - Home Medications Comprehensive Discharge Medication List: Ambulatory Orders Esomeprazole Mag Trihydrate [Nexium] 40 mg PO DAILY 12/07/12 traZODone HCL [Desyrel -] 50 mg PO HS 04/02/14 Testosterone [Androgel] 1.25 gm TD DAILY 06/15/14 Apixaban [Eliquis] 5 mg PO BID #60 tablet 10/13/17 Atorvastatin Ca [Lipitor] 80 mg PO HS #60 tablet 10/13/17 Metoprolol Succinate [Toprol XL -] 50 mg PO BID #120 tab.sr.24h 10/13/17 Amlodipine Besylate 0 mg PO DAILY 12/26/17 Fluticasone Prop 0.05% Nasal [Flonase -] 1 spray NS HS 12/26/17
--- NOTE | 2017-12-27 11:29 | PN ---
Progress Note (short form) - Note Progress Note: plan to monitor HR on telemtry today repeat ekg today and tmw then dc home tmw
--- NOTE | 2017-12-27 11:35 | PN ---
Progress Note, Physician History of Present Illness: Spontaneous conversion to SR on Sotalol, normal QTc, no arrhythmia on telemetry , asymptomatic. - Current Medication List Current Medications: Active Medications Apixaban (Eliquis -) 5 mg PO BID [facility] Last Admin: 12/27/17 09:29 Dose: 5 mg Atorvastatin Calcium (Lipitor -) 80 mg PO [facility] Last Admin: 12/26/17 21:01 Dose: 80 mg Diltiazem HCl (Cardizem -) 30 mg PO TID [facility] Last Admin: 12/27/17 05:55 Dose: Not Given Fluticasone Propionate (Flonase -) 1 spray NS [facility] Last Admin: 12/26/17 21:01 Dose: 1 spray Pantoprazole Sodium (Protonix -) 40 mg PO DAILY [facility] Last Admin: 12/27/17 09:28 Dose: 40 mg Sotalol HCl (Betapace -) 80 mg PO BID [facility] Last Admin: 12/27/17 09:28 Dose: 80 mg Trazodone HCl (Desyrel -) 50 mg PO [facility] Last Admin: 12/26/17 21:00 Dose: 50 mg - Objective Vital Signs: Vital Signs Temperature 98.3 F 12/27/17 05:00 Pulse Rate 52 L 12/27/17 08:53 Respiratory Rate 20 12/27/17 08:53 Blood Pressure 130/76 12/27/17 08:53 O2 Sat by Pulse Oximetry (%) 97 12/27/17 08:52 Constitutional: Yes: No Distress, Calm Neck: Yes: Supple Cardiovascular: Yes: Bradycardia, Murmur (2/6 SM) Respiratory: Yes: Regular, CTA Bilaterally Gastrointestinal: Yes: Normal Bowel Sounds, Soft, Abdomen, Obese Edema: No Labs: CBC, BMP 12/26/17 09:25 12/26/17 09:25 INR, PTT INR 1.10 (0.83-1.09) H 12/25/17 21:52 - ....Imaging EKG: Report Reviewed (Tele: SB) Problem List - Problems (1) Chronic anticoagulation Code(s): Z79.01 - FPC (CURRENT) USE OF ANTICOAGULANTS (2) Hyperlipidemia Code(s): E78.5 - HYPERLIPIDEMIA, UNSPECIFIED Qualifiers: Hyperlipidemia type: pure hypercholesterolemia Qualified Code(s): E78.00 - Pure hypercholesterolemia, unspecified; E78.0 - Pure hypercholesterolemia (3) Moderate aortic stenosis Code(s): I35.0 - NONRHEUMATIC AORTIC (VALVE) STENOSIS (4) Paroxysmal atrial flutter Code(s): I48.92 - UNSPECIFIED ATRIAL FLUTTER (5) Demand ischemia Code(s): I24.8 - OTHER FORMS OF ACUTE ISCHEMIC HEART DISEASE Assessment/Plan 03/22/2017 Echo: Normal LV and RV size and fxn, abnl LV compliance, normal biatrial sizes, mod NEELAM 1.0 cm^2, MG 18.7 mmHg, mild AI, tr MR, TR 10/12/2017 Echo: Normal LV and RV size and fxn, mod LAE, mod , mild TR RVSP 30 -40 mmHg 1. Recurrent paroxysmal atrial flutter now in sinus rhythm 2. Moderate aortic stenosis 3. Hyperlipidemia not at goal 4. Demand ischemia P: 1. Continue sotalol 80 bid with monitor QT interval, d/c Cardizem, continue Eliquis 5 bid, Lipitor 80 qhs and add zetia 10 qd 2. D/c planning in AM after review of QTc tomorrow 3. Patient to f/u with Dr. Rainey and Dr. Mercedez LOPEZ of [facility] [place]c
[2017-12-27] MEDS: EZETIMIBE 10 MG TABLET (FP) PO SCH (13:33)
--- NOTE | 2017-12-27 14:30 | EKG ---
Test Reason : Blood Pressure : / mmHG Vent. Rate : 079 BPM Atrial Rate : 278 BPM P-R Int : 000 ms QRS Dur : 096 ms QT Int : 358 ms P-R-T Axes : 270 035 -18 degrees QTc Int : 410 ms ATRIAL FLUTTER WITH VARIABLE A-V BLOCK ABNORMAL ECG WHEN COMPARED WITH ECG OF 25-DEC-2017 21:32, ATRIAL FLUTTER HAS REPLACED SINUS RHYTHM VENT. RATE HAS DECREASED BY [address] ELEVATION NOW PRESENT IN INFERIOR LEADS ST NO LONGER DEPRESSED IN LATERAL LEADS Confirmed by MARLINE MENA MD ([id number]) on 12/27/2017 2:30:45 PM Referred By: Confirmed By:MARLINE MENA MD
[2017-12-27] MEDS: traZODone HCL 50 MG TABLET (FP) PO SCH (21:09)
[2017-12-27] MEDS: ATORVASTATIN CA 80 MG TABLET (FP) PO SCH (21:09)
[2017-12-27] MEDS: FLUTICASONE PROP 0.05% 16 GM NASAL SPRAY NS SCH (21:10)
[2017-12-28 05:25] VITALS: TEMP 98.2
[2017-12-28] MEDS: SOTALOL HCL 80 MG TABLET (FP) PO SCH (09:32)
[2017-12-28] MEDS: EZETIMIBE 10 MG TABLET (FP) PO SCH (09:35)
[2017-12-28] MEDS: APIXABAN 5 MG TABLET PO SCH (09:35)
[2017-12-28] MEDS: PANTOPRAZOLE 40 MG TABLET (FP) PO SCH (09:35)
--- NOTE | 2017-12-28 10:15 | PN ---
Progress Note, Physician History of Present Illness: Remains in SR on Sotalol, normal QTc, no arrhythmia on telemetry, asymptomatic. - Current Medication List Current Medications: Active Medications Apixaban (Eliquis -) 5 mg PO BID [facility] Last Admin: 12/28/17 09:35 Dose: 5 mg Atorvastatin Calcium (Lipitor -) 80 mg PO [facility] Last Admin: 12/27/17 21:09 Dose: 80 mg Ezetimibe (Zetia -) 10 mg PO DAILY [facility] Last Admin: 12/28/17 09:35 Dose: 10 mg Fluticasone Propionate (Flonase -) 1 spray NS [facility] Last Admin: 12/27/17 21:10 Dose: 1 spray Pantoprazole Sodium (Protonix -) 40 mg PO DAILY [facility] Last Admin: 12/28/17 09:35 Dose: 40 mg Sotalol HCl (Betapace -) 80 mg PO BID [facility] Last Admin: 12/28/17 09:32 Dose: 80 mg Trazodone HCl (Desyrel -) 50 mg PO [facility] Last Admin: 12/27/17 21:09 Dose: 50 mg - Objective Vital Signs: Vital Signs Temperature 98.2 F 12/28/17 05:00 Pulse Rate 52 L 12/28/17 05:00 Respiratory Rate 20 12/28/17 07:46 Blood Pressure 135/65 12/28/17 05:00 O2 Sat by Pulse Oximetry (%) 98 12/28/17 07:46 Constitutional: Yes: No Distress, Calm Neck: Yes: Supple Cardiovascular: Yes: Regular Rate and Rhythm, Murmur (2/6 SM) Respiratory: Yes: Regular, CTA Bilaterally Gastrointestinal: Yes: Normal Bowel Sounds, Soft Edema: No Labs: CBC, BMP 12/26/17 09:25 12/26/17 09:25 INR, PTT INR 1.10 (0.83-1.09) H 12/25/17 21:52 - ....Imaging EKG: Report Reviewed (SB @ 53 LAE QTc 414 msec) Problem List - Problems (1) Chronic anticoagulation Code(s): Z79.01 - PRISON (CURRENT) USE OF ANTICOAGULANTS (2) Hyperlipidemia Code(s): E78.5 - HYPERLIPIDEMIA, UNSPECIFIED Qualifiers: Hyperlipidemia type: pure hypercholesterolemia Qualified Code(s): E78.00 - Pure hypercholesterolemia, unspecified; E78.0 - Pure hypercholesterolemia (3) Moderate aortic stenosis Code(s): I35.0 - NONRHEUMATIC AORTIC (VALVE) STENOSIS (4) Paroxysmal atrial flutter Code(s): I48.92 - UNSPECIFIED ATRIAL FLUTTER (5) Demand ischemia Code(s): I24.8 - OTHER FORMS OF ACUTE ISCHEMIC HEART DISEASE Assessment/Plan 03/22/2017 Echo: Normal LV and RV size and fxn, abnl LV compliance, normal biatrial sizes, mod NEELAM 1.0 cm^2, MG 18.7 mmHg, mild AI, tr MR, TR 10/12/2017 Echo: Normal LV and RV size and fxn, mod LAE, mod , mild TR RVSP 30 -40 mmHg 1. Recurrent paroxysmal atrial flutter now in sinus rhythm 2. Moderate aortic stenosis 3. Hyperlipidemia not at goal 4. Demand ischemia 5. Microalbuminuria P: 1. Continue sotalol 80 bid, Eliquis 5 bid, Lipitor 80 qhs and zetia 10 qd, eventual SAVANNAH-I/ARB 2. D/c planning with f/u with Dr. Rainey and Dr. Mercedez LOPEZ of [facility] [place]
--- NOTE | 2017-12-28 10:42 | DS ---
Physical Examination Vital Signs: Vital Signs Temperature 98.2 F 12/28/17 05:00 Pulse Rate 52 L 12/28/17 05:00 Respiratory Rate 20 12/28/17 07:46 Blood Pressure 135/65 12/28/17 05:00 O2 Sat by Pulse Oximetry (%) 98 12/28/17 07:46 Cardiovascular: Yes: S1, S2 Respiratory: Yes: Regular, CTA Bilaterally Gastrointestinal: Yes: Normal Bowel Sounds, Soft Labs: CBC, BMP 12/26/17 09:25 12/26/17 09:25 Discharge Summary Reason For Visit: TACHYCARDIA Current Active Problems Demand ischemia (Acute) Hypothyroid (Acute) Irregular heart beat (Acute) Hospital Course: This is a 67 year old male with a past medical history significant for SVT and afib who presented to the emergency department with palpitations. As per patient , his symptoms started while at home at rest. Pt states he checked his HR and found it to be 150. He took 300mg of Metoprolol, without relief, prompting his visit to the ER today. ER course was notable for: (1) HR 139 upon arrival (2) trop 0.22 Recent Travel: pt denies paroxysmal afib HLD lipitor 80mg on sotalol and cardizem no plan for cardioversion repeat TFT as outpatinet Problems (1) Paroxysmal atrial flutter Assessment/Plan: - took home metoprolol dose plus additional doses--Total 300 yesterday - observe on tele on metoprolol 50 bid-- - cardiology consult - cont home eliquis Code(s): I48.92 - UNSPECIFIED ATRIAL FLUTTER (2) Moderate aortic stenosis Assessment/Plan: -Review last echo Code(s): I35.0 - NONRHEUMATIC AORTIC (VALVE) STENOSIS (3) Hypothyroid Assessment/Plan: - pt states that his PCP informed him to stop taking his armour thyroid - will check TSH Code(s): E03.9 - HYPOTHYROIDISM, UNSPECIFIED Cardiology consult Assessment/Plan 03/22/2017 Echo: Normal LV and RV size and fxn, abnl LV compliance, normal biatrial sizes, mod NEELAM 1.0 cm^2, MG 18.7 mmHg, mild AI, tr MR, TR 10/12/2017 Echo: Normal LV and RV size and fxn, mod LAE, mod , mild TR RVSP 30 -40 mmHg 1. Recurrent paroxysmal atrial flutter now in sinus rhythm 2. Moderate aortic stenosis 3. Hyperlipidemia not at goal 4. Demand ischemia 5. Microalbuminuria P: 1. Continue sotalol 80 bid, Eliquis 5 bid, Lipitor 80 qhs and zetia 10 qd, eventual SAVANNAH-I/ARB 2. D/c planning with f/u with Dr. Rainey and Dr. Newsome EP of [facility] [place] - Instructions Referrals: Mark Eckert MD [Primary Care Provider] - 2 Weeks (repeat thyroid funciton test) Disposition: HOME - Home Medications Comprehensive Discharge Medication List: Ambulatory Orders Esomeprazole Mag Trihydrate [Nexium] 40 mg PO DAILY 12/07/12 traZODone HCL [Desyrel -] 50 mg PO HS 04/02/14 Testosterone [Androgel] 1.25 gm TD DAILY 06/15/14 Apixaban [Eliquis] 5 mg PO BID #60 tablet 10/13/17 Atorvastatin Ca [Lipitor] 80 mg PO HS #60 tablet 10/13/17 Fluticasone Prop 0.05% Nasal [Flonase -] 1 spray NS HS 12/26/17 Diltiazem [Cardizem -] 30 mg PO TID #90 tablet MDD 3 12/27/17 Sotalol HCl [Betapace -] 80 mg PO BID #60 tablet MDD 2 12/27/17
--- NOTE | 2017-12-28 11:26 | EKG ---
Test Reason : Blood Pressure : / mmHG Vent. Rate : 053 BPM Atrial Rate : 053 BPM P-R Int : 158 ms QRS Dur : 104 ms QT Int : 442 ms P-R-T Axes : 047 024 014 degrees QTc Int : 414 ms SINUS BRADYCARDIA POSSIBLE LEFT ATRIAL ENLARGEMENT NONSPECIFIC T WAVE ABNORMALITY ABNORMAL ECG WHEN COMPARED WITH ECG OF 27-DEC-2017 09:17, NO SIGNIFICANT CHANGE WAS FOUND Confirmed by EVERETT ARTEAGA, ARACELY ([id number]) on 12/28/2017 11:25:41 AM Referred By: BINA CEE Confirmed By:ARACELY FLOYD MD
[2017-12-28 11:31] VITALS: BP 141/85; PULSE 56
== END 2017-12-28 13:17 | disposition home or self-care (01) | DRG 309 ==
LOC: JER 21:26 → JERBED 12-26 00:48 → J4W 12-26 04:17 → OBSVTOIN 12-26 12:17
PROVIDERS: ADMIT Internal Medicine; ATTEND Family Medicine
DX: I48.0 Paroxysmal atrial fibrillation (principal); I24.8 Other forms of acute ischemic heart disease; Z79.01 Long term (current) use of anticoagulants; I10 Essential (primary) hypertension; E03.9 Hypothyroidism, unspecified; I35.0 Nonrheumatic aortic (valve) stenosis; Z87.891 Personal history of nicotine dependence; I48.91 Unspecified atrial fibrillation; I44.39 Other atrioventricular block; I25.10 Atherosclerotic heart disease of native coronary artery without angina pectoris; I25.2 Old myocardial infarction; I47.1 Supraventricular tachycardia; R80.9 Proteinuria, unspecified
CPT/HCPCS: 36415; 71045-TC-FY; 80048; 80053; 80061; 81003; 81015; 82550; 82553; 83721; 83735; 84100; 84443; 84484; 85025; 85610; 93005; 93010; 99285-25; G0378

== ENCOUNTER 2021-10-01 21:24 | Emergency (ER) | payer OTHER ==
[2021-10-01 21:49] VITALS: BP 136/66; PULSE 75; TEMP 98.1; BMI 28.0
[2021-10-01 23:18] LABS: BASO % 0.8 % (0-2.0); EOS % 3.4 % (0-4.5); HEMATOCRIT 37.7 % (35.4-49); HEMOGLOBIN 12.5 GM/dL (11.7-16.9); MCH 28.8 pg (25.7-33.7); MCHC 33.2 g/dl (32.0-35.9); MEAN CELL VOLUME 86.6 fl (80-96); MEAN PLT VOLUME 7.8 fl (7.5-11.1); MONO % 12.2 % (3.8-10.2); NEUT % 64.6 % (42.8-82.8); PLATELET COUNT 159 10^3/uL (134-434); RBC 4.35 M/mm3 (4.00-5.60)
[2021-10-01 23:25] LABS: INR 1.29 (0.83-1.09); PROTHROMBIN TIME (PATIENT) 14.9 SEC (9.7-13.0)
[2021-10-01 23:28] LABS: ACTIVATED PTT 28.9 SECONDS (25.2-36.5)
[2021-10-02 00:16] LABS: ALBUMIN 3.2 g/dl (3.4-5.0); BILIRUBIN,TOTAL 0.6 mg/dL (0.2-1); BLOOD UREA NITROGEN 51.4 mg/dL (7-18); CALCIUM 9.1 mg/dL (8.5-10.1); CREATININE 2.1 mg/dL (0.55-1.3); TOT PROT 6.4 g/dl (6.4-8.2)
== END 2021-10-02 00:56 | disposition home or self-care (01) ==
LOC: JER 21:24
DX: N17.9 Acute kidney failure, unspecified (principal); R04.2 Hemoptysis
CPT/HCPCS: 36415; 71046-TC-FY; 80053; 85025; 85610; 85730; 99284-25

== ENCOUNTER 2022-07-11 04:38 | Day surgery (SDC) | payer OTHER ==
[2022-07-11 09:13] VITALS: TEMP 97.2
[2022-07-11 09:42] VITALS: RESP 19
[2022-07-11 09:43] VITALS: BP 126/69; PULSE 51
== END 2022-07-11 09:55 | disposition home or self-care (01) ==
LOC: JASU-ENDO 04:38
PROVIDERS: ATTEND Student in an Organized Health Care Education/Training Program
PROC: 0DB78ZX Excision of Stomach, Pylorus, Via Natural or Artificial Opening Endoscopic, Diagnostic (ICD-10-PCS; 2022-07-11)
PROC: 0DB68ZX Excision of Stomach, Via Natural or Artificial Opening Endoscopic, Diagnostic (ICD-10-PCS; 2022-07-11)
PROC: 0DB48ZX Excision of Esophagogastric Junction, Via Natural or Artificial Opening Endoscopic, Diagnostic (ICD-10-PCS; 2022-07-11)
PROC: 0DB98ZX Excision of Duodenum, Via Natural or Artificial Opening Endoscopic, Diagnostic (ICD-10-PCS; principal; 2022-07-11 08:30)
DX: K21.00 Gastro-esophageal reflux disease with esophagitis, without bleeding (principal); K29.50 Unspecified chronic gastritis without bleeding; K22.89 Other specified disease of esophagus; K31.89 Other diseases of stomach and duodenum
CPT/HCPCS: 88305-TC; 88342-TC

== ENCOUNTER 2023-02-05 17:41 | Emergency (ER) | payer OTHER ==
[2023-02-05 18:07] VITALS: BP 168/75; PULSE 58; RESP 18; TEMP 98.3; BMI 28.8
== END 2023-02-05 19:15 | disposition home or self-care (01) ==
LOC: JER 17:41
DX: I10 Essential (primary) hypertension (principal); R51.9 Headache, unspecified; Z53.21 Procedure and treatment not carried out due to patient leaving prior to being seen by health care provider
CPT/HCPCS: 99281-25